=== PATIENT | male | born 1940 | race Caucasian/White ===

== ENCOUNTER 2017-02-17 11:53 | Inpatient (IN) | payer MEDICARE, BC ==
[~2017-02-17] VITALS: Ht 177.8 cm; Wt 92.0 kg
[2017-02-17] VITALS: BP 130/86; PULSE 74; RESP 18; TEMP 97.2; O2SAT 97
[~2017-02-17 11:53] MED LIST: COUM5TAB PO; COUM7.5T PO; FOLI1 PO; GABA300C3 PO; MORP60TA20 PO; MSIR15 PO; POTA-243 PO; TAMS0.4C67 PO; [UNRECOGNIZED DRUG - CODE]
[2017-02-17] MEDS ORDERED: SODIUM CHLORIDE 0.9% FLUSH 10 ML FLUSH IVF PRN (12:15)
[2017-02-17 12:21] VITALS: RESP 20; O2SAT 99
[2017-02-17 12:29] VITALS: BP 113/67; PULSE 80; RESP 20; TEMP 97.7
--- NOTE | 2017-02-17 12:40 | PD ---
HPI Chief Complaint: Respiratory Distress Time Seen by Provider: 12:06 Travel History International Travel<30 days: No Contact w/Intl Traveler<30days: No Traveled to known affect area: No History of Present Illness HPI 76-year-old male with history of adenocarcinoma of the esophagus, hypertension, DVT, presents to the ER today because he started having shortness of breath starting last night. He denies any chest pains, states has been coughing, denies any significant phlegm production, fevers, or any other symptoms. Modifying Factors: None Associated Signs & Symptoms: Worsening shortness of breath Risk Factors: Elderly, multiple medical issues PFSH Past Medical History Arthritis: Yes Asthma: No Autoimmune Disease: No Anxiety: Yes Depression: No Heart Rhythm Problems: No Cancer: Yes (PROSTATE) Cardiovascular Problems: Yes (LEFT LEG DVT) High Cholesterol: Yes Chemotherapy: No Chest Pain: No Congestive Heart Failure: No COPD: No Cerebrovascular Accident: No Diabetes: No Diminished Hearing: No Deep Vein Thrombosis: Yes (LEFT LEG) Endocrine: No Gastrointestinal Disorders: Yes GERD: Yes Genitourinary: Yes (BPH) Headaches: Yes Hepatitis: No Hiatal Hernia: No Hypertension: Yes Immune Disorder: No Kidney Stones: No Musculoskeletal: Yes Neurologic: Yes Psychiatric: Yes Reproductive: No Respiratory: No Integumentary: Yes (BOTH LOWER LEGS EDEMA) Migraines: No Radiation Therapy: No Renal Failure: Yes (END STAGE RENAL DISEASE) Seizures: No Sickle Cell Disease: No Sleep Apnea: No Thyroid Disease: No Ulcer: No Past Surgical History Abdominal Surgery: Yes (double hernia repair) AICD: No Arteriovenous Shunt: No Cardiac Surgery: No Ear Surgery: No Endocrine Surgery: No Eye Surgery: No Genitourinary Surgery: No Gynecologic Surgery: No Insulin Pump: No Joint Replacement: Yes (RT HIP) Neurologic Surgery: No Oral Surgery: No Pacemaker: No Thoracic Surgery: No Other Surgery: Yes Social History Alcohol Use: Yes Tobacco Use: Yes (cigars) Substance Use: No Allergies-Medications (Allergen,Severity, Reaction): Uncoded Allergies: ANTIDEPRESSANTS (Adverse Reaction, Mild, DEPRESSED, 05/28/15) pt states not allergic Reported Meds & Prescriptions Reported Meds & Active Scripts Active Reported Diltiazem (Diltiazem HCl) 90 Mg Tab 90 Mg PO DAILY Folate (Folic Acid) 1 Mg Tab 1 Mg PO DAILY Ferrous Sulfate 325 Mg Tab 325 Mg PO DAILY K-Tab (Potassium Chloride) 10 Meq Tab 10 Meq PO BID Warfarin 2.5 Mg Tab 2.5 Mg PO SUMOWETHSA IN THE AM Warfarin 5 Mg Tab 5 Mg PO TUFR IN THE AM. Lasix (Furosemide) 20 Mg Tab 20 Mg PO DAILY Megared [place]-3 Krill Oil (Krill Oil) 500 Mg Cap 500 Mg PO DAILY Centrum (Multiple Vitamins W/ Minerals) 1 Tab 1 Tab PO DAILY Morphine IR (Morphine Sulfate) 30 Mg Tab 30 Mg PO TID PRN Ms Contin (Morphine Sulfate) 30 Mg Tab 30 Mg PO BID Tamsulosin (Tamsulosin HCl) 0.4 Mg Cap 0.4 Mg PO HS Magnesium Oxide 400 Mg Tab 400 Mg PO DAILY Lyrica (Pregabalin) 150 Mg Cap 150 Mg PO HS Amoxicillin 500 Mg Cap 500 Mg PO Q12HR Review of Systems Except as stated in HPI: all other systems reviewed are Neg Physical Exam Narrative GENERAL: Well-developed elderly white male patient in mild respiratory distress at rest. Awake and oriented 3. SKIN: Focused skin assessment warm/dry. HEAD: Atraumatic. Normocephalic. EYES: Pupils equal and round. No scleral icterus. No injection or drainage. ENT: No nasal bleeding or discharge. Mucous membranes pink and moist. NECK: Trachea midline. Positive JVD. CARDIOVASCULAR: Regular rate and rhythm. No murmur appreciated. RESPIRATORY: Mild accessory muscle use. Breath sounds decreased at bases. Breath sounds equal bilaterally. GASTROINTESTINAL: Abdomen soft, non-tender, nondistended. Hepatic and splenic margins not palpable. MUSCULOSKELETAL: No obvious deformities. No clubbing. No cyanosis. EXTREMITIES: No clubbing, cyanosis. Notable for bilateral pitting edema the legs. No joint tenderness or effusion noted. No calf tenderness. NEUROLOGICAL: Awake and alert. No obvious cranial nerve deficits. Motor grossly within normal limits. Normal speech. PSYCHIATRIC: Appropriate mood and affect; insight and judgment normal. Data Data Last Documented VS Vital Signs Date Time Temp Pulse Resp B/P Pulse Ox O2 Delivery O2 Flow Rate FiO2 02/17/17 15:26 86 16 123/79 97 3 02/17/17 12:37 Nasal Cannula 02/17/17 12:29 97.7 Orders Complete Blood Count With Diff (02/17/17 12:06) Comprehensive Metabolic Panel (02/17/17 12:06) B-Type Natriuretic Peptide (02/17/17 12:06) Act Partial Throm Time (Ptt) (02/17/17 12:06) Prothrombin Time / Inr (Pt) (02/17/17 12:06) Ckmb (Isoenzyme) Profile (02/17/17 12:06) Troponin I (02/17/17 12:06) Iv Access Insert/Monitor (02/17/17 12:06) Electrocardiogram (02/17/17 12:06) Ecg Monitoring (02/17/17 12:06) Oximetry (02/17/17 12:06) Oxygen Administration (02/17/17 12:06) Chest, Single Ap (02/17/17 12:06) Sodium Chloride 0.9% Flush (Ns Flush) (02/17/17 12:15) Ct Pulmonary Angiogram (02/17/17 13:38) Acetamin-Hydrocod 325-5 Mg ([place] 5-325 (02/17/17 14:00) Iohexol 350 Inj (Omnipaque 350 Inj) (02/17/17 15:54) Enoxaparin Inj (Lovenox Inj) (02/17/17 16:30) Labs Laboratory Tests Test 02/17/17 02/17/17 02/17/17 00:00 11:45 12:30 B-Type Natriuretic Peptide 81 PG/ML Prothrombin Time 26.3 SEC Prothromb Time International 2.3 RATIO Ratio Activated Partial 37.9 SEC Thromboplast Time White Blood Count 8.2 TH/MM3 Red Blood Count 3.96 MIL/MM3 Hemoglobin 13.5 GM/DL Hematocrit 39.9 % Mean Corpuscular Volume 100.7 FL Mean Corpuscular Hemoglobin 33.9 PG Mean Corpuscular Hemoglobin 33.7 % Concent Red Cell Distribution Width 16.5 % Platelet Count 160 TH/MM3 Mean Platelet Volume 7.8 FL Neutrophils (%) (Auto) 80.2 % Lymphocytes (%) (Auto) 9.0 % Monocytes (%) (Auto) 9.2 % Eosinophils (%) (Auto) 0.6 % Basophils (%) (Auto) 1.0 % Neutrophils # (Auto) 6.5 TH/MM3 Lymphocytes # (Auto) 0.7 TH/MM3 Monocytes # (Auto) 0.7 TH/MM3 Eosinophils # (Auto) 0.1 TH/MM3 Basophils # (Auto) 0.1 TH/MM3 CBC Comment DIFF FINAL Differential Comment Sodium Level 138 MEQ/L Potassium Level 4.7 MEQ/L Chloride Level 104 MEQ/L Carbon Dioxide Level 26.4 MEQ/L Anion Gap 8 MEQ/L Blood Urea Nitrogen 36 MG/DL Creatinine 1.52 MG/DL Estimat Glomerular Filtration 45 ML/MIN Rate Random Glucose 105 MG/DL Calcium Level 8.7 MG/DL Total Bilirubin 0.8 MG/DL Aspartate Amino Transf 29 U/L (AST/SGOT) Alanine Aminotransferase 19 U/L (ALT/SGPT) Alkaline Phosphatase 106 U/L Total Creatine Kinase 77 U/L Troponin I LESS THAN 0.02 NG/ML Total Protein 6.6 GM/DL Albumin 2.9 GM/DL [facility] Medical Decision Making Medical Screen Exam Complete: Yes Emergency Medical Condition: Yes Medical Record Reviewed: Yes Interpretation(s) Laboratory Tests Test 02/17/17 02/17/17 11:45 12:30 Prothrombin Time 26.3 SEC (9.8-11.6) Activated Partial 37.9 SEC Thromboplast Time (24.3-30.1) Red Blood Count 3.96 MIL/MM3 (4.50-5.90) Mean Corpuscular Volume 100.7 FL (80.0-100.0) Neutrophils (%) (Auto) 80.2 % (16.0-70.0) Monocytes (%) (Auto) 9.2 % (0.0-8.0) Lymphocytes # (Auto) 0.7 TH/MM3 (1.0-4.8) Blood Urea Nitrogen 36 MG/DL (7-18) Creatinine 1.52 MG/DL (0.60-1.30) Estimat Glomerular Filtration 45 ML/MIN (>89) Rate Troponin I LESS THAN 0.02 NG/ML (0.02-0.05) Albumin 2.9 GM/DL (3.4-5.0) Last [address] Angiography 02/17/17 5168 Signed Impressions: Service Date/Time: Friday, February 17, 2017 15:08 - CONCLUSION: 1. Extensive metastatic disease with innumerable mass lesions throughout both lungs. 2. In addition, there are bulky left supraclavicular and left axillary lymph nodes, prevascular and subcarinal lymph nodes. 3. Nearly occlusive filling defect in the central pulmonary artery to the right lower lobe. I'm not sure if this represents external compression from a bulky hilar lymph node with downstream thrombosis versus a true embolic event. This appears to be isolated, however. 4. Lytic lesion in the left scapula involving the acromion and glenoid characteristic of metastatic disease. Myles Beltran MD Chest X-Ray 02/17/17 1206 Signed Impressions: Service Date/Time: Friday, February 17, 2017 12:19 - CONCLUSION: Cardiomegaly with probable bibasilar atelectasis. Christofer Kennedy MD Differential Diagnosis Shortness of breathpneumonia versus CHF versus COPD versus PE Narrative Course Initial chest x-ray did not show any signs of acute processes. Lab work, cardiac enzymes, BNP is essentially unremarkable. CTA was done to evaluate symptoms further and show metastases to multiple areas of both lungs with a questionable compression of one of the main arteries in the right lung versus PE versus thrombosis. At this point, patient was put on Lovenox as well. My plan would be to admit the patient for further evaluation and treatment. Case was discussed with family practice resident service for admission. Diagnosis Primary Impression: Pulmonary embolism Additional Impression: Cancer with pulmonary metastases Admitting Information Admitting Physician Requests: Admit Chang Martin MD February 17, 2017 12:40
--- NOTE | 2017-02-17 12:41 | RADRPT ---
EXAM DATE/TIME: 02/17/2017 12:19 [facility] COMPARISON: CHEST SINGLE AP, April 27, 2014, 19:56. INDICATIONS : Short of breath, swollen legs, lethargic. MEDICAL HISTORY : Chronic obstructive pulmonary disease. SURGICAL HISTORY : None. ENCOUNTER: Initial ACUITY: 1 day PAIN SCORE: 0/10 LOCATION: Bilateral chest FINDINGS: A single view of the chest demonstrates cardiomegaly and bibasilar densities. Right-sided portacathet er with tip in the right atrium. Diminished lung volumes limiting evaluation. Osseous structures are intact. CONCLUSION: Cardiomegaly with probable bibasilar atelectasis. Christofer Kennedy MD on February 17, 2017 at 12:38 Board Certified Radiologist. This report was verified electronically.
[2017-02-17 12:58] LABS: AUTOMATED NEUTROPHIL # 6.5 TH/MM3 (1.8-7.7); BASOPHIL # 0.1 TH/MM3 (0-0.2); EOSINOPHIL # 0.1 TH/MM3 (0-0.4); EOSINOPHIL % 0.6 % (0.0-4.0); HEMATOCRIT 39.9 % (39.0-51.0); HEMO FLAGS DIFF FINAL; LYMPHOCYTE # 0.7 TH/MM3 (1.0-4.8); MEAN CELL VOLUME 100.7 FL (80.0-100.0); MEAN CORPUSCULAR HEMOGLOBIN 33.9 PG (27.0-34.0); MEAN CORPUSCULAR HGB CONC 33.7 % (32.0-36.0); MONO % 9.2 % (0.0-8.0); NEUT % 80.2 % (16.0-70.0); PLATELET COUNT 160 TH/MM3 (150-450); RED BLOOD COUNT 3.96 MIL/MM3 (4.50-5.90); RED CELL DISTRIBUTION WIDTH 16.5 % (11.6-17.2); WHITE BLOOD COUNT 8.2 TH/MM3 (4.0-11.0)
[2017-02-17 13:08] LABS: APTT (PATIENT) 37.9 SEC (24.3-30.1); INTERNATIONAL NORMALIZED RATIO 2.3 RATIO; PROTHROMBIN TIME - PATIENT 26.3 SEC (9.8-11.6)
[2017-02-17 13:23] LABS: ALT (GPT) 19 U/L (12-78); ANION GAP 8 MEQ/L (5-15); AST (GOT) 29 U/L (15-37); BICARBONATE 26.4 MEQ/L (21.0-32.0); BLOOD UREA NITROGEN 36 MG/DL (7-18); CHLORIDE 104 MEQ/L (98-107); GLOMERULAR FILTRATION RATE 45 ML/MIN (>89); POTASSIUM 4.7 MEQ/L (3.5-5.1); SODIUM (NA) 138 MEQ/L (136-145)
[2017-02-17 13:27] LABS: ALKALINE PHOSPHATASE 106 U/L (45-117); TOTAL BILIRUBIN ADULT 0.8 MG/DL (0.2-1.0)
[2017-02-17 13:31] LABS: CREATINE KINASE 77 U/L (39-308)
[2017-02-17] MEDS ORDERED: MS C30TA PO (13:49)
[2017-02-17] MEDS ORDERED: LYRI150C PO (13:49)
[2017-02-17] MEDS ORDERED: AMOX500C PO (13:49)
[2017-02-17] MEDS ORDERED: MAGN400T2 PO (13:49)
[2017-02-17] MEDS ORDERED: TAMS0.4C4 PO (13:49)
[2017-02-17] MEDS ORDERED: MULT-6 PO (13:53)
[2017-02-17] MEDS ORDERED: FURO1TAB62 PO (13:53)
[2017-02-17] MEDS ORDERED: KRIL1CAP9 PO (13:53)
[2017-02-17] MEDS ORDERED: MSIR30 PO (13:53)
[2017-02-17] MEDS ORDERED: WARF-23 PO (13:55)
[2017-02-17] MEDS ORDERED: WARF-18 PO (13:55)
[2017-02-17] MEDS ORDERED: FOLI1TAB4 PO (13:57)
[2017-02-17] MEDS ORDERED: K-TA10TA PO (13:57)
[2017-02-17] MEDS ORDERED: DILT90TA PO (13:57)
[2017-02-17] MEDS ORDERED: FERR325T PO (13:57)
[2017-02-17] MEDS ORDERED: ACETAMINOPHEN/HYDROcodone 325 MG/5 MG TAB PO ONE (14:00)
[2017-02-17 15:26] VITALS: BP 123/79; PULSE 86; RESP 16; O2SAT 97
[2017-02-17] MEDS ORDERED: IOHEXOL 350 MG/ML 10 ML VIAL (for RAD DIAG) IV ONE (15:54)
--- NOTE | 2017-02-17 15:55 | RADRPT ---
EXAM DATE/TIME: 02/17/2017 15:08 [facility] COMPARISON: CHEST SINGLE AP, February 17, 2017, 12:19. INDICATIONS : Short of breath for one day IV CONTRAST: 70 cc Omnipaque 350 (iohexol) IV RADIATION DOSE: 23.33 CTDIvol (mGy) MEDICAL HISTORY : Cardiovascular disease. Congestive heart failure. Deep venous thrombosis.Hypertension. Atrial fibrill ation. Prostate cancer. Renal failure. SURGICAL HISTORY : None. ENCOUNTER: Initial ACUITY: 1 day PAIN SCALE: 2/10 LOCATION: Bilateral chest TECHNIQUE: Volumetric scanning of the chest was performed using a pulmonary embolism protocol MIP images were re constructed. Using automated exposure control and adjustment of the mA and/or kV according to patien t size, radiation dose was kept as low as reasonably achievable to obtain optimal diagnostic quality images. FINDINGS: PULMONARY ARTERIES: Nearly occlusive filling defect in the major pulmonary artery to the right lower lobe. I'm not sure i f this represents external compression from a prominent hilar lymph node with downstream thrombosis o r a true embolic event. Either way, there is marked flow restriction to this arterial distribution. P ulmonary arteries are otherwise patent. LUNGS: Innumerable mass lesions throughout both lungs characteristic of metastatic disease. PLEURAE: There is no pleural thickening or pleural effusion. MEDIASTINUM: Extensive adenopathy in the left supraclavicular region, prevascular space and subcarinal distributio n as well as the left axillary lymph nodes. MUSCULOSKELETAL: Lytic lesion in the left scapula involving the acromion and glenoid. MISCELLANEOUS: Nonspecific hypodensity in the right hepatic lobe near the dome of the gallbladder. 1.9 cm nodule in the right adrenal gland. CONCLUSION: 1. Extensive metastatic disease with innumerable mass lesions throughout both lungs. 2. In addition, there are bulky left supraclavicular and left axillary lymph nodes, prevascular and s ubcarinal lymph nodes. 3. Nearly occlusive filling defect in the central pulmonary artery to the right lower lobe. I'm not s ure if this represents external compression from a bulky hilar lymph node with downstream thrombosis versus a true embolic event. This appears to be isolated, however. 4. Lytic lesion in the left scapula involving the acromion and glenoid characteristic of metastatic d isease. Myles Beltran MD on February 17, 2017 at 15:37 Board Certified Radiologist. This report was verified electronically.
[2017-02-17] MEDS ORDERED: ENOXAPARIN SODIUM 100 MG/ML SYRINGE SQ ONE (16:30)
--- NOTE | 2017-02-17 16:33 | HHI.HP ---
[facility] Service Family Medicine Primary Care Physician Unknown Admission Diagnosis Diagnoses: International Travel<30 Days: No Contact w/Intl Traveler<30days: No Known Affected Area: No History of Present Illness 76-year-old male with history of esophageal adenocarcinoma. According to EMR records, from his oncologist Dr. Bartlett, he underwent upper and lower endoscopy March 2015 and was found to have poorly differentiated adenocarcinoma involving the GE junction. He was not a candidate for surgery. He was treated with radiation therapy and had complete response with upper endoscopies within normal limits. He had an upper endoscopy in May [address] Deleon and showed no evidence of cancer. 04/20/2016 PET scan showed no cancer. Patient is in the room with his friend/significant other. Patient states that 2 days ago he was laying in bed reading and became short of breath all of a sudden. He could not catch his breath at that time. Normally he is able to walk half a block, but over the last 2 days he has had trouble getting around his house. He also fell last night while getting out of bed. He thinks he laid on the ground for approximately 30 minutes and called his significant other who, with the help of a neighbor, picked the patient up and into bed. This morning and all day, the patient has not had anything to eat. He has been taking water. His primary care physician did start him on amoxicillin on Wednesday because of concern for infection in his legs. He does have chronic left shoulder pain, but his pain in his left shoulder is now worse than normal. He cannot move it very well. It is very tender to touch. 9 out of 10 pain which is worse with moving and touching it. Review of Systems Constitutional: COMPLAINS OF: Fever (felt hot), Chills, DENIES: Night Sweats Eyes: DENIES: Blurred vision, Diplopia Respiratory: COMPLAINS OF: Shortness of breath, DENIES: Cough, Sputum production Cardiovascular: COMPLAINS OF: Chest pain Gastrointestinal: COMPLAINS OF: Difficulty Swallowing, DENIES: Abdominal pain , Constipation, Diarrhea, Nausea, Vomiting Musculoskeletal: COMPLAINS OF: Joint pain, Muscle aches, Stiffness, Joint Swelling, Back pain, Neck pain Integumentary: COMPLAINS OF: Abnormal pigmentation, Rash Hematologic/lymphatic: COMPLAINS OF: Bruising Neurologic: COMPLAINS OF: Abnormal gait, DENIES: Headache Psychiatric: DENIES: Anxiety, Confusion Past Family Social History Past Medical History Gout Anxiety and depression Arthritis Chronic back pain requiring narcotics DVT 2 Esophageal cancer (follows with Dr. Bartlett), poorly differentiated adenocarcinoma Hypertension Mild dysphagia Osteoporosis Peripheral vascular disease Prostate cancer Past Surgical History Biopsy, multiple prostate biopsies show small focus of prostate cancer May 01, 2016 Carpal tunnel right hand Hernia repair, bilateral Hip surgery, left Right knee surgery Right inguinal hernia repair Colonoscopy in 2015 Reported Medications Reported Meds & Active Scripts Active Reported Diltiazem (Diltiazem HCl) 90 Mg Tab 90 Mg PO DAILY Folate (Folic Acid) 1 Mg Tab 1 Mg PO DAILY Ferrous Sulfate 325 Mg Tab 325 Mg PO DAILY K-Tab (Potassium Chloride) 10 Meq Tab 10 Meq PO BID Warfarin 2.5 Mg Tab 2.5 Mg PO SUMOWETHSA IN THE AM Warfarin 5 Mg Tab 5 Mg PO TUFR IN THE AM. Lasix (Furosemide) 20 Mg Tab 20 Mg PO DAILY Megared [place]-3 Krill Oil (Krill Oil) 500 Mg Cap 500 Mg PO DAILY Centrum (Multiple Vitamins W/ Minerals) 1 Tab 1 Tab PO DAILY Morphine IR (Morphine Sulfate) 30 Mg Tab 30 Mg PO TID PRN Ms Contin (Morphine Sulfate) 30 Mg Tab 30 Mg PO BID Tamsulosin (Tamsulosin HCl) 0.4 Mg Cap 0.4 Mg PO HS Magnesium Oxide 400 Mg Tab 400 Mg PO DAILY Lyrica (Pregabalin) 150 Mg Cap 150 Mg PO HS Amoxicillin 500 Mg Cap 500 Mg PO Q12HR Allergies: Uncoded Allergies: ANTIDEPRESSANTS (Adverse Reaction, Mild, DEPRESSED, 05/28/15) pt states not allergic Active Ordered Medications Active Medications Acetaminophen/ Hydrocodone Bitart ([place] 5-325 Mg) 1 tab ONCE ONCE PO Last administered on 02/17/17 14:00; Admin Dose 1 TAB; Start 02/17/17 at 14:00; Stop 02/17/17 at 14:01; Status DC Enoxaparin Sodium (Lovenox Inj) 100 mg ONCE ONCE SQ; Start 02/17/17 at 16:30; Stop 02/17/17 at 16:31; Status DC Iohexol (Omnipaque 350 Inj) 70 ml STK-MED ONCE IV Last administered on 15:54; Admin Dose 70 ML; Start 02/17/17 at 15:54; Stop 02/17/17 at 15:55; Status DC Sodium Chloride (NS Flush) 2 ml UNSCH PRN IVF; Start 02/17/17 at 12:15 Family History Mother: no hx of cancer Father: non contributory Social History ADL: cooks, cleans, bathes self. Pays bills Lives with: his "friend" who helps him at home. Tobacco: currently puffs on cigars. hx of tobacco use 50 years ago socially. Alcohol: drinks a quart of whiskey every 2 days. never been through withdrawal. Physical Exam Vital Signs Vital Signs Date Time Temp Pulse Resp B/P Pulse Ox O2 Delivery O2 Flow Rate FiO2 02/17/17 15:26 86 16 123/79 97 3 02/17/17 12:37 99 Nasal Cannula 3.5 02/17/17 12:29 97.7 80 20 113/67 02/17/17 12:21 99 Nasal Cannula 3.5 02/17/17 12:21 20 99 3.5 Physical Exam GENERAL: This is a elderly, tired appearing male, who appears uncomfortable lying in bed. NAD SKIN: bilateral lower legs with hemosiderin changes. HEAD: Atraumatic. Normocephalic. No temporal or scalp tenderness. EYES: Pupils equal round and reactive. Extraocular motions intact. No scleral icterus. No injection or drainage. ENT: Nose without bleeding, purulent drainage or septal hematoma. Throat without erythema, tonsillar hypertrophy or exudate. Uvula midline. Airway patent. NECK: Trachea midline. Supple, nontender, no meningeal signs. CARDIOVASCULAR: Regular rate and rhythm without murmurs, gallops, or rubs. RESPIRATORY: Clear to auscultation. Normal respiratory effort GASTROINTESTINAL: Abdomen soft, non-tender, nondistended. No hepato-splenomegaly , or palpable masses. No guarding. MUSCULOSKELETAL: 2+ edema to mid phillip. 2+ edema on left hand to wrist. Left shoulder: exquisitely tender to palpation. no active ROM. passive ROM deferred. NEUROLOGICAL: Awake and alert. Cranial nerves II through XII intact. Motor and sensory grossly within normal limits. Normal speech. Laboratory Laboratory Tests Test 02/17/17 02/17/17 02/17/17 00:00 11:45 12:30 B-Type Natriuretic Peptide 81 Prothrombin Time 26.3 Prothromb Time International 2.3 Ratio Activated Partial 37.9 Thromboplast Time White Blood Count 8.2 Red Blood Count 3.96 Hemoglobin 13.5 Hematocrit 39.9 Mean Corpuscular Volume 100.7 Mean Corpuscular Hemoglobin 33.9 Mean Corpuscular Hemoglobin 33.7 Concent Red Cell Distribution Width 16.5 Platelet Count 160 Mean Platelet Volume 7.8 Neutrophils (%) (Auto) 80.2 Lymphocytes (%) (Auto) 9.0 Monocytes (%) (Auto) 9.2 Eosinophils (%) (Auto) 0.6 Basophils (%) (Auto) 1.0 Neutrophils # (Auto) 6.5 Lymphocytes # (Auto) 0.7 Monocytes # (Auto) 0.7 Eosinophils # (Auto) 0.1 Basophils # (Auto) 0.1 CBC Comment DIFF FINAL Differential Comment Sodium Level 138 Potassium Level 4.7 Chloride Level 104 Carbon Dioxide Level 26.4 Anion Gap 8 Blood Urea Nitrogen 36 Creatinine 1.52 Estimat Glomerular Filtration 45 Rate Random Glucose 105 Calcium Level 8.7 Total Bilirubin 0.8 Aspartate Amino Transf 29 (AST/SGOT) Alanine Aminotransferase 19 (ALT/SGPT) Alkaline Phosphatase 106 Total Creatine Kinase 77 Troponin I LESS THAN 0.02 Total Protein 6.6 Albumin 2.9 Result Diagram: 02/17/17 1230 02/17/[address] Angiography 02/17/17 1338 Signed Impressions: Service Date/Time: Friday, February 17, 2017 15:08 - CONCLUSION: 1. Extensive metastatic disease with innumerable mass lesions throughout both lungs. 2. In addition, there are bulky left supraclavicular and left axillary lymph nodes, prevascular and subcarinal lymph nodes. 3. Nearly occlusive filling defect in the central pulmonary artery to the right lower lobe. I'm not sure if this represents external compression from a bulky hilar lymph node with downstream thrombosis versus a true embolic event. This appears to be isolated, however. 4. Lytic lesion in the left scapula involving the acromion and glenoid characteristic of metastatic disease. Myles Beltran MD Chest X-Ray 02/17/17 1206 Signed Impressions: Service Date/Time: Friday, February 17, 2017 12:19 - CONCLUSION: Cardiomegaly with probable bibasilar atelectasis. Christofer Kennedy MD Assessment and Plan Assessment and Plan 76-year-old male with history of esophageal carcinoma presents with CT findings concerning for metastatic cancer to lung and left shoulder. Also concerning for pulmonary embolism. Treatment as below Code Status Full, discussed with patient the likely futility in chest compressions being successful for a good outcome. Discussed Condition With Dr. Prieto On-call oncologist, Dr. Das Problem List: (1) Cancer with pulmonary metastases Status: Acute Plan: CT findings show metastatic carcinoma to liver and left scapula/shoulder Oncology consult, Dr. Bartlett Palliative consult Pain control: Continue home regimen, Oramorph 30 mg by mouth twice a day, morphine IR 30 mg by mouth 3 times a day when necessary Obtain CT abdomen/pelvis now (2) Pulmonary embolism Status: Acute Plan: Currently adequately anticoagulated on warfarin Continue warfarin INR 2.3 (3) Alcohol abuse Status: Acute Plan: Folic acid, multivitamin, thiamine CIWA (4) Acute renal failure Status: Acute Plan: Likely from decreased by mouth intake in the last 1-2 days Start normal saline 140 mL per hour (5) Physical deconditioning Status: Acute Plan: PT consult (6) FEN/PPX Status: Acute Plan: Fluids: Normal saline at 140 miles per hour Electrolytes: Monitor and replace when necessary Nutrition: Clear liquid diet now, speech therapy to evaluate Prophylaxis: Continue warfarin, INR 2.3, bilateral SCDs. Chronic medical conditions: Lower extremity edema: Continue Lasix 20 mg daily Iron deficiency anemia: Continue home iron CAD: Continue diltiazem 90 mg by mouth daily BPH: Continue Flomax Physician Certification 2 Midnight Certification Type: Admission for Inpatient Services Order for Inpatient Services The services are ordered in accordance with Medicare regulations or non- Medicare payer requirements, as applicable. In the case of services not specified as inpatient-only, they are appropriately provided as inpatient services in accordance with the 2-midnight benchmark. Estimated LOS (days): 3 days is the estimated time the patient will need to remain in the hospital, assuming treatment plan goals are met and no additional complications. Post-Hospital Plan: Not yet determined Raghu Funez MD R2 February 17, 2017 16:33
[2017-02-17] MEDS: SODIUM CHLOR 0.9% 1000 ML INJ 1,000 ML IV SCH (17:33)
[2017-02-17] MEDS ORDERED: MAGNESIUM HYDROXIDE SUSP 30 ML CUP PO PRN (17:45)
[2017-02-17] MEDS ORDERED: LORazepam 1 MG TAB PO PRN (17:45)
[2017-02-17] MEDS ORDERED: LORazepam 2 MG/ML VIAL IV PUSH PRN ×4 (17:45)
[2017-02-17] MEDS ORDERED: ONDANSETRON HCL 4 MG/2 ML VIAL IVP PRN (17:45)
[2017-02-17] MEDS ORDERED: SODIUM CHLORIDE 0.9% FLUSH 10 ML FLUSH IV FLUSH PRN (17:45)
[2017-02-17] MEDS ORDERED: NALOXONE HCL 0.4 MG/ML AMP IV PRN (17:45)
[2017-02-17] MEDS ORDERED: LORazepam 2 MG TAB PO PRN (17:45)
[2017-02-17] MEDS ORDERED: FLUMAZENIL 0.5 MG/5 ML VIAL IV PUSH PRN (17:45)
[2017-02-17] MEDS: WARFARIN SOD 2.5 MG TAB PO SCH (18:00)
[2017-02-17 18:13] VITALS: BP 139/100; PULSE 83; RESP 18; TEMP 98.2; O2SAT 97
[2017-02-17] MEDS ORDERED: DO NOT ADM ANY ANTICOAGULANT DRUGS OTHER PRN (18:30)
[2017-02-17 20:00] VITALS: BP 125/71; PULSE 83; RESP 18; TEMP 97.4; O2SAT 97
[2017-02-17] MEDS: POTASSIUM CHLORIDE 10 MEQ CONTROLLED RELEASE TAB PO SCH (21:20)
[2017-02-17] MEDS: PREGABALIN 75 MG CAP PO SCH (21:20)
[2017-02-17] MEDS: TAMSULOSIN HCL 0.4 MG CAP PO SCH (21:22)
[2017-02-17] MEDS: MORPHINE SULFATE 30 MG CONTROLLED RELEASE TAB PO SCH (21:22)
[2017-02-17] MEDS: SODIUM CHLORIDE 0.9% FLUSH 10 ML FLUSH IV FLUSH SCH (21:22)
[2017-02-18] VITALS (10 sets, daily range): BP systolic 131–138; BP diastolic 61–87; PULSE 76–93; RESP 18–20; TEMP 97.3–98.1; O2SAT 94–99
[2017-02-18] MEDS: SODIUM CHLOR 0.9% 1000 ML INJ 1,000 ML IV SCH ×2 (00:42→22:09)
[2017-02-18 05:42] LABS: AUTOMATED NEUTROPHIL # 5.1 TH/MM3 (1.8-7.7); BASOPHIL # 0.1 TH/MM3 (0-0.2); BASOPHIL % 0.8 % (0.0-2.0); EOSINOPHIL # 0.1 TH/MM3 (0-0.4); HEMATOCRIT 39.2 % (39.0-51.0); HEMO FLAGS DIFF FINAL; LYMPH % 10.6 % (9.0-44.0); LYMPHOCYTE # 0.7 TH/MM3 (1.0-4.8); MEAN CELL VOLUME 101.9 FL (80.0-100.0); MEAN CORPUSCULAR HEMOGLOBIN 34.6 PG (27.0-34.0); MEAN CORPUSCULAR HGB CONC 33.9 % (32.0-36.0); NEUT % 78.6 % (16.0-70.0); PLATELET COUNT 158 TH/MM3 (150-450); RED BLOOD COUNT 3.85 MIL/MM3 (4.50-5.90); RED CELL DISTRIBUTION WIDTH 16.6 % (11.6-17.2); WHITE BLOOD COUNT 6.5 TH/MM3 (4.0-11.0)
[2017-02-18 05:54] LABS: INTERNATIONAL NORMALIZED RATIO 2.3 RATIO; PROTHROMBIN TIME - PATIENT 26.9 SEC (9.8-11.6)
[2017-02-18 06:14] LABS: ALKALINE PHOSPHATASE 106 U/L (45-117); ALT (GPT) 15 U/L (12-78); ANION GAP 7 MEQ/L (5-15); AST (GOT) 22 U/L (15-37); BICARBONATE 28.1 MEQ/L (21.0-32.0); BLOOD UREA NITROGEN 34 MG/DL (7-18); CHLORIDE 104 MEQ/L (98-107); GLOMERULAR FILTRATION RATE 53 ML/MIN (>89); POTASSIUM 4.7 MEQ/L (3.5-5.1); SODIUM (NA) 139 MEQ/L (136-145); TOTAL BILIRUBIN ADULT 0.7 MG/DL (0.2-1.0)
--- NOTE | 2017-02-18 08:15 | HHI.FPPN ---
Subjective Remarks Pt seen and examined this AM. Did well overnight. No new complaints. Denies CP, SOB, abdominal pain, headache, edema, rash, cough, hemoptysis. Feels like he can 't get his throat cleared. Hasn't tried eating yet. Doesn't want to stay in the hospital and wants to go home as soon as possible. (Jen Torres MD) Objective Vitals Vital Signs Date Time Temp Pulse Resp B/P Pulse Ox O2 Delivery O2 Flow Rate FiO2 02/18/17 04:36 98 Nasal Cannula 2.00 02/18/17 04:00 97.5 83 18 131/81 99 02/18/17 03:34 77 02/17/17 22:37 20 02/17/17 22:37 20 02/17/17 20:00 97.4 83 18 125/71 97 02/17/17 18:13 98.2 83 18 139/100 97 Nasal Cannula 2.5 02/17/17 15:26 86 16 123/79 97 3 02/17/17 12:37 99 Nasal Cannula 3.5 02/17/17 12:29 97.7 80 20 113/67 02/17/17 12:21 99 Nasal Cannula 3.5 02/17/17 12:21 20 99 3.5 I/O 02/17/17 02/17/17 02/17/17 02/18/17 02/18/17 02/18/17 07:00 15:00 23:00 07:00 15:00 23:00 Intake Total 480 ml 100 ml Output Total 225 ml Balance 255 ml 100 ml Intake Oral 480 ml 100 ml Output Urine Total 225 ml # Voids 0 # Bowel Movements 0 0 (Jen Torres MD) Result Diagram: 02/18/17 0511 02/18/[address] Angiography 02/17/17 1338 Signed Impressions: Service Date/Time: Friday, February 17, 2017 15:08 - CONCLUSION: 1. Extensive metastatic disease with innumerable mass lesions throughout both lungs. 2. In addition, there are bulky left supraclavicular and left axillary lymph nodes, prevascular and subcarinal lymph nodes. 3. Nearly occlusive filling defect in the central pulmonary artery to the right lower lobe. I'm not sure if this represents external compression from a bulky hilar lymph node with downstream thrombosis versus a true embolic event. This appears to be isolated, however. 4. Lytic lesion in the left scapula involving the acromion and glenoid characteristic of metastatic disease. Myles Beltran MD Chest X-Ray 02/17/17 1206 Signed Impressions: Service Date/Time: Friday, February 17, 2017 12:19 - CONCLUSION: Cardiomegaly with probable bibasilar atelectasis. Christofer Kennedy MD Objective Remarks GENERAL: Elderly male sitting up in bed in NAD. SKIN: Warm and dry. Superficial abrasion left forehead. Pearly, domelike papule with central umbilication tip of nose. HEENT: Pupils equal and round. No nasal drainage. MMM. Hoarse voice. NECK: Supple, fullness of left supraclavicular region. CHEST: Port in place right chest. HEART: RRR no m/r/g/ LUNGS: CTAB w/o wheezes or crackles. ABDOMEN: Soft, NT, ND. EXTREMITIES: No LE edema. Brawny discoloration of LE. NEURO: Awake and alert. (Jen Torres MD) A/P Assessment and Plan 76-year-old male with history of esophageal carcinoma and prostate cancer presenting with shortness of breath and right shoulder pain. CTA with questionable PE but also notable for extensive innumerable metastatic lesions and bulky lymphadenopathy. INR already therapeutic since patient anticoagulated on Coumadin for DVT x 2. Oncology and palliative care consulted for further evaluation and management. Discharge Planning Palliative care and oncology consulted; will await their evaluation and assessment. Patient with new-onset widespread metastatic disease in his lungs and will see if further diagnostic studies will be done while inpatient. (Jen Torres MD) Attending Attestation THIS CASE WAS DISCUSSED WITH THE RESIDENT PHYSICIANS. I HAVE REVIEWED THE RECORD AND AGREE WITH THE ABOVE NOTE AND PLAN OF CARE WAS DISCUSSED. PATIENT WAS SEEN AND EXAMINED WITH THE MEDICAL TEAM. SEE ORDERS. (Benedicto Prieto MD) Problem List: (1) Cancer with pulmonary metastases Status: Acute Plan: Patient presenting with shortness of breath and right shoulder pain and found to have innumerable metastatic lesions in his lungs along with bulky left supraclavicular and left axillary lymph nodes, prevascular and subcarinal lymph nodes, as well as a lytic lesion in the left scapula. He has known esophageal and prostate cancer. Patient known to Dr. Bartlett who is consulted. - CEA significantly elevated (? possibly new primary colorectal cancer vs. prostate or other) - PSA pending - Check CT abdomen/pelvis for further lesions or evidence of new primary - Palliative care consulted to evaluate goals; patient wants to be FULL code - Continue home Oramorph 30 mg PO BID, morphine IR 30 mg PO TID PRN for breath through (2) Pulmonary embolism Status: Acute Plan: Unclear if patient had true embolic event as CTA shows a filling defect in the central pulmonary artery to the right lower lobe which may be from external compression from a bulky hilar node. Regardless, he is already anticoagulated on Coumadin with a therapeutic INR (has history of prior DVT x 2) . (3) Acute renal failure Status: Acute Plan: Creatinine elevated to 1.52 on admission. Improving with hydration. - Monitor and avoid nephrotoxic agents (4) Alcohol abuse Status: Acute Plan: Patient drinks whiskey daily (a quart lasts ~2 days), and elevated MCV suggests significant alcohol consumption. CIWA protocol and rally pack. No signs of acute withdrawal at this time. (5) Physical deconditioning Status: Acute Plan: PT consulted. (6) FEN/PPX Status: Acute Plan: - Fluids: NS at 140 ml/hr - Electrolytes: WNL. Monitor and replete as needed - Nutrition: Clear liquids; ST to evaluate - DVT prophylaxis: Continue home Coumadin Chronic medical conditions: - Venous stasis disease: continue home Lasix - Iron deficiency anemia: continue home iron - CAD: continue diltiazem 90 mg PO daily - BPH: Continue Flomax sdw Dr. Prieto, Dr. Funez, and Dr. Song (Jen Torres MD) Jen Torres MD February 18, 2017 08:15 Benedicto Prieto MD February 19, 2017 08:22
[2017-02-18] MEDS ORDERED: DILTIAZEM 90 MG PO SCH (09:00)
[2017-02-18] MEDS: MULTIVITAMINS/MINERALS THERAPEUTIC TAB PO SCH (09:45)
[2017-02-18] MEDS: FOLIC ACID 1 MG TAB PO SCH (09:45)
[2017-02-18] MEDS: FUROSEMIDE 20 MG TAB PO SCH (09:46)
[2017-02-18] MEDS: FERROUS SULFATE 325 MG (65 MG ELEMENTAL IRON) TAB PO SCH (09:46)
[2017-02-18] MEDS: MAGNESIUM OXIDE 400 MG TAB PO SCH (09:46)
[2017-02-18] MEDS: POTASSIUM CHLORIDE 10 MEQ CONTROLLED RELEASE TAB PO SCH ×2 (09:46→22:09)
[2017-02-18] MEDS: MORPHINE SULFATE 30 MG CONTROLLED RELEASE TAB PO SCH ×2 (09:46→22:10)
[2017-02-18] MEDS: THIAMINE HCL 100 MG TAB PO SCH (09:46)
[2017-02-18] MEDS: SODIUM CHLORIDE 0.9% FLUSH 10 ML FLUSH IV FLUSH SCH ×2 (09:47→22:10)
[2017-02-18] MEDS ORDERED: DILTIAZEM HCL 90 MG TAB PO SCH (10:36)
--- NOTE | 2017-02-18 10:55 | PD.CONS ---
Consult Service Palliative Care . Consult Requested By Dr. Funez . Primary Care Physician Unknown . Reason for Consultation a. To assist with evaluation and management of symptoms including: dyspnea, pain, weakness, constipation b. To assist medical decision maker(s) with: better understanding of current medical conditions; weighing benefits/burdens of medical treatment options; making medical treatment decisions. . HPI History of Present Illness Mr. Zhou is a 76-year-old male who presented to [facility] ED on 2016 for evaluation of shortness of breath and shoulder pain. 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 Dr. Bartlett is his oncologist. He was not a candidate for surgery secondary to his debilitation. He was treated with radiation therapy and comitant Carboplatin and Taxol. A PET scan in 04/2016 showed no evidence of disease; endoscopy in 05/2016 was also negative.. The patient was not a candidate for surgery, but he was treated with radiation therapy with positive effect. Follow-up imaging in April and May 2016 showed no evidence of cancer. Additional past medical history is significant for hypertension, DVT, chronic back pain who process, and mild dysphasia, peripheral vascular disease, prostate cancer, h/o C. difficile, gout, anxiety/depression, arthritis, hypercholesterolemia and ESRD. Patient denied chest pain, reported a non- productive cough. Patient's PCP started the patient on amoxicillin last Wednesday ( 02/14/2017) for active cellulitis. The patient has a history of chronic left shoulder pain, but he reported it was worse than usual with decreased mobility. Patient rated pain a 9 out of 10; pain aches exacerbated by touch or movement. Diagnostic findings all in the ED: * Vital signs: Pulse 74, respirations 18, BP 130/86, oxygen saturation 97% on room air, axillary temperature 97.2 * WBC: 8.2, hemoglobin 13.5, hematocrit 39.9, platelets 160, neutrophils 80.2% * Sodium: 138, potassium 4.7, chloride 104, carbon dioxide 26.4, glucose 105, calcium 8.7 * BUN: 36, creatinine 1.52, GFR 45 total bilirubin: 0.8, AST 29, ALT 19, alkaline phosphatase 106 * Total creatine kinase 77 * BNP: 81 * Total protein: 6.6, albumin 2.9 * PT: 26.3, INR 2.3, APTT 37.9 * EKG: Atrial fibrillation; right bundle branch block * Chest x-ray showed cardiomegaly with probable bibasilar atelectasis. * CTA revealed extensive metastatic disease with innumerable mass lesions throughout both lungs; bulky left supra clavicular and left axillary lymph nodes , prevascular and subcarinal nodes; nearly occlusive filling defect in the central pulmonary artery to the right lower lobe (it is unclear if this represents external compression from a bulky hilar lymph node with downstream thrombosis versus a true embolic event, however appears to be isolated); Lytic lesion in the left scapula involving the acromion and glenoid characteristic of metastatic disease. CTA revealed metastasis to multiple areas in the lungs bilaterally with questionable compression of one of the main arteries in the right lung versus PE versus thrombosis. Patient was started on Lovenox. He was subsequently admitted for further evaluation and medical management. Oncology consult pending. Palliative Care was consulted to assist with symptom management and to discuss with the patient/family the benefits and burdens of his current illnesses and the options regarding future care. . Function/Cognitive Trajectory . Mr. Zhou is a 76-year-old man status post treatment (radiation therapy with comitant Carboplatin and Taxol) for esophageal carcinoma diagnosed in 2014. In August,, the patient was gaining weight. He was having difficulty chewing secondary to fractures and breakage of multiple teeth. Patient reports he was able able to walk half a block without difficulty until recently, but he now has difficulty getting around the house secondary to his dyspnea.the night before the patient presented to [place] ED, he fell while trying to get out of bed and was unable to get up without assist from his significant other and neighbor. He stated in the ED that his appetite had been poor 2 days but now states it is improving. He has a weak cough and feels that he cannot clear his throat. The patient has stated he does not want to stay in the hospital and he wants to go home as soon as possible. . Review of Systems ROS Limitations: Speech Impaired, Poor Historian Constitutional: COMPLAINS OF: Fatigue (increased fatigue), Change in appetite ( recent decline in appetite), Pain (History of chronic left shoulder pain, now increased from baseline. Pain is exacerbated with movement and light palpation. Patient also complains of soreness in bilateral lower extremities.), Generalized weakness Eyes: DENIES: Blurred vision, Diplopia Ears, nose, mouth, throat: DENIES: Hearing loss, Epistaxis Respiratory: COMPLAINS OF: Cough, Shortness of breath Cardiovascular: COMPLAINS OF: Dyspnea on Exertion, Lower Extremity Edema (trace ) Gastrointestinal: COMPLAINS OF: Difficulty Swallowing, DENIES: Constipation, Diarrhea, Nausea, Vomiting Musculoskeletal: COMPLAINS OF: Joint pain (Chronic left shoulder pain), Muscle aches, Stiffness, Joint Swelling, Back pain, Neck pain Integumentary: COMPLAINS OF: Abnormal pigmentation Hematologic/Lymphatics: COMPLAINS OF: Bruising Neurologic: COMPLAINS OF: Abnormal gait, Speech Problems Psychiatric: COMPLAINS OF: Anxiety, Confusion Past Family Social History Uncoded Allergies: ANTIDEPRESSANTS (Adverse Reaction, Mild, DEPRESSED, 05/28/15) pt states not allergic Past Medical History Gout Anxiety/depression Arthritis History of C. difficile DVT x 2 Hypercholesterolemia Hypertension ESRD Chronic back pain requiring narcotics Esophageal cancer (follows with Dr. Bartlett), poorly differentiated adenocarcinoma Mild dysphagia Osteoporosis Peripheral vascular disease Prostate cancer . Past Surgical History Biopsy, multiple prostate biopsies show small focus of prostate cancer May 01, 2016 Carpal tunnel right hand Hernia repair, bilateral Hip surgery, left Right knee surgery Right inguinal hernia repair Colonoscopy in 2014 . Reported Medications Diltiazem (Diltiazem HCl) 90 Mg Tab 90 Mg PO DAILY Folate (Folic Acid) 1 Mg Tab 1 Mg PO DAILY Ferrous Sulfate 325 Mg Tab 325 Mg PO DAILY K-Tab (Potassium Chloride) 10 Meq Tab 10 Meq PO BID Warfarin 2.5 Mg Tab 2.5 Mg PO SUMOWETHSA IN THE AM Warfarin 5 Mg Tab 5 Mg PO TUFR IN THE AM. Lasix (Furosemide) 20 Mg Tab 20 Mg PO DAILY [facility] [place]-3 Krill Oil (Krill Oil) 500 Mg Cap 500 Mg PO DAILY Centrum (Multiple Vitamins W/ Minerals) 1 Tab 1 Tab PO DAILY Morphine IR (Morphine Sulfate) 30 Mg Tab 30 Mg PO TID PRN Ms Contin (Morphine Sulfate) 30 Mg Tab 30 Mg PO BID Tamsulosin (Tamsulosin HCl) 0.4 Mg Cap 0.4 Mg PO HS Magnesium Oxide 400 Mg Tab 400 Mg PO DAILY Lyrica (Pregabalin) 150 Mg Cap 150 Mg PO HS Amoxicillin 500 Mg Cap 500 Mg PO Q12HR . Current Medications Medications (Trade) Dose Ordered Sig/Amador Route Start Time Stop Time Status Last Admin (NS 1000 ml Inj) 1,000 ml @ 140 mls/hr Q7H9M IV 02/17/17 17:33 02/18/17 00:42 (NS Flush) 2 ml UNSCH PRN IV FLUSH 02/17/17 17:45 (NS Flush) 2 ml BID IV FLUSH 02/17/17 21:00 02/18/17 09:47 (Zofran Inj) 4 mg Q6H PRN IVP 02/17/17 17:45 (Milk Of Magnesia Liq) 30 ml Q12H PRN PO 02/17/17 17:45 (Narcan Inj) 0.4 mg UNSCH PRN IV 02/17/17 17:45 (Romazicon Inj) 0.2 mg Q1M PRN IV PUSH 02/17/17 17:45 (Ativan) 1 mg Q4H PRN PO 02/17/17 17:45 (Ativan Inj) 1 mg Q4H PRN IV PUSH 02/17/17 17:45 (Ativan) 2 mg Q2H PRN PO 02/17/17 17:45 (Ativan Inj) 2 mg Q2H PRN IV PUSH 02/17/17 17:45 (Ativan Inj) 2 mg Q1H PRN IV PUSH 02/17/17 17:45 (Ativan Inj) 2 mg Q15M PRN IV PUSH 02/17/17 17:45 (Folate) 1 mg DAILY PO 02/18/17 09:00 02/23/17 08:59 02/18/17 09:45 (Vitamin B1) 100 mg DAILY PO 02/18/17 09:00 02/18/17 09:46 (Theragran M Tab) 1 tab DAILY PO 02/18/17 09:00 02/23/17 08:59 02/18/17 09:45 (Cardizem Sr) 90 mg DAILY PO 02/18/17 09:00 (Ferrous Sulfate) 325 mg DAILY PO 02/18/17 09:00 02/18/17 09:46 (Lasix) 20 mg DAILY PO 02/18/17 09:00 02/18/17 09:46 (Mag-Ox) 400 mg DAILY PO 02/18/17 09:00 02/18/17 09:46 (Oramorph Sr) 30 mg BID PO 02/17/17 21:00 02/18/17 09:46 (Msir) 30 mg TID PRN PO 02/17/17 18:00 (KCl) 10 meq BID PO 02/17/17 21:00 02/18/17 09:46 (Lyrica) 150 mg HS PO 02/17/17 21:00 02/17/17 21:20 (Flomax) 0.4 mg HS PO 02/17/17 21:00 02/17/17 21:22 (Coumadin) 2.5 mg SuMoWeThSa@16 PO 02/17/17 18:00 02/17/17 18:00 (Coumadin) 5 mg TuFr@16 PO 02/19/17 16:00 Miscellaneous Information ALL NURSING DEPARTME... UNSCH PRN OTHER 02/17/17 18:30 02/18/17 18:29 . Family History Mr. Zhou's mother's had a history of cancer, she at the age of 91. Patient's father at the age of 92. He has 3 brothers and one sister; 1 brother from complications secondary to EtOH and tobacco. . Substance Use Tobacco: Patient quit smoking cigarettes approximately 50 years ago; currently "puffs" on cigars. Alcohol: Heavy EtOH abuse; patient drinks a quart of whiskey every 2 days Prescription med abuse: None known Illicits: None known . Psychosocial History Mr. Zhou was born in [facility], outside of [place]. He was one of 6 children. He is legally from his , but they never . He has been with the same female morning nanny (Stephanie Gage) for 20+ years. The patient has 4 daughters and 10 grandchildren. 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 He is an avid reader and enjoys old movies. . Spiritual/Cultural Factors Yarsani tiesha . Living Will: Copy in medical record Health Care Surrogate: Copy in medical record Durable Power of Canary Raiser: Copy in medical record Date completed: 11/14/1998 . Health Care Surrogate(s): Patient's daughter, Cynthia Russell, is the designated care surrogate. Daughter, Sofia Marcial, is designated as the alternate health care surrogate. . Documented care wishes: Patient's completed written advanced directives have been scanned into the patient's EMR, available for review. . Today's verbally stated goals: Patient states his worship tells him that he "must do anything and everything possible to stay alive". Goals remain aggressive at this time. . Family/friends goals: Pending family meeting/conversation after oncology consult . Ethical and Legal Issues No known ethical or legal issues at this time. . Physical Exam Vital Signs Date Time Temp Pulse Resp B/P Pulse Ox O2 Delivery O2 Flow Rate FiO2 02/18/17 08:00 97.3 93 18 138/87 95 02/18/17 04:36 98 Nasal Cannula 2.00 02/18/17 04:00 97.5 83 18 131/81 99 02/18/17 03:34 77 02/17/17 22:37 20 02/17/17 22:37 20 02/17/17 20:00 97.4 83 18 125/71 97 02/17/17 18:13 98.2 83 18 139/100 97 Nasal Cannula 2.5 02/17/17 15:26 86 16 123/79 97 3 02/17/17 12:37 99 Nasal Cannula 3.5 02/17/17 12:29 97.7 80 20 113/67 02/17/17 12:21 99 Nasal Cannula 3.5 02/17/17 12:21 20 99 3.5 . 02/17/17 02/18/17 19:00 07:00 Intake Total 580 ml Output Total 225 ml Balance 355 ml Intake Oral 580 ml Output Urine Total 225 ml # Voids 0 # Bowel Movements 0 . Exam CONSTITUTIONAL/GENERAL: This is an adequately nourished elderly male patient in no apparent distress. TUBES/LINES/DRAINS: PIV 2, Dixon catheter, port right chest wall SKIN: Ecchymoses on upper extremities, some abrasions noted. Skin temperature appropriate. Not diaphoretic. Bilateral lower extremities with induration, danica brown color. HEAD: Atraumatic. Normocephalic. EYES: Pupils equal and round and reactive. Extraocular motions intact. No scleral icterus. No injection or drainage. Fundi not examined. ENT: Hearing grossly normal. Nose without bleeding or purulent drainage. Throat without visible erythema, exudates, masses, or lesions. NECK: Trachea midline. Supple, nontender. No palpable thyroid enlargement or nodularity. CARDIOVASCULAR: Regular rate and rhythm without murmurs, gallops, or rubs. No JVD. Peripheral pulses symmetric. RESPIRATORY/CHEST: Breath sounds diminished bilaterally with scattered rales. GASTROINTESTINAL: Abdomen soft, non-tender, nondistended. Bowel sounds present. GENITOURINARY: Without palpable bladder distension. Dixon catheter in place. MUSCULOSKELETAL: Trace edema in bilateral lower extremities. Right phillip with Tegaderm on what appears to be a skin tag. Dressing on the phillip dry and intact. LYMPHATICS: No palpable cervical or supraclavicular adenopathy. NEUROLOGICAL: Lethargic, falling asleep throughout conversation. Responds to simple questions with brief answers. PSYCHIATRIC: No obvious anxiety/depression. no apparent hallucinations or other psychotic thought process. . Diagnostic Tests Laboratory Laboratory Tests Test 02/17/17 02/17/17 02/17/17 02/18/17 00:00 11:45 12:30 05:11 B-Type Natriuretic Peptide 81 PG/ML (0-100) Prothrombin Time 26.3 SEC 26.9 SEC (9.8-11.6) (9.8-11.6) Prothromb Time International 2.3 RATIO 2.3 RATIO Ratio Activated Partial 37.9 SEC Thromboplast Time (24.3-30.1) White Blood Count 8.2 TH/MM3 6.5 TH/MM3 (4.0-11.0) (4.0-11.0) Red Blood Count 3.96 MIL/MM3 3.85 MIL/MM3 (4.50-5.90) (4.50-5.90) Hemoglobin 13.5 GM/DL 13.3 GM/DL (13.0-17.0) (13.0-17.0) Hematocrit 39.9 % 39.2 % (39.0-51.0) (39.0-51.0) Mean Corpuscular Volume 100.7 FL 101.9 FL (80.0-100.0) (80.0-100.0) Mean Corpuscular Hemoglobin 33.9 PG 34.6 PG (27.0-34.0) (27.0-34.0) Mean Corpuscular Hemoglobin 33.7 % 33.9 % Concent (32.0-36.0) (32.0-36.0) Red Cell Distribution Width 16.5 % 16.6 % (11.6-17.2) (11.6-17.2) Platelet Count 160 TH/MM3 158 TH/MM3 (150-450) (150-450) Mean Platelet Volume 7.8 FL 7.6 FL (7.0-11.0) (7.0-11.0) Neutrophils (%) (Auto) 80.2 % 78.6 % (16.0-70.0) (16.0-70.0) Lymphocytes (%) (Auto) 9.0 % 10.6 % (9.0-44.0) (9.0-44.0) Monocytes (%) (Auto) 9.2 % (0.0-8.0) 9.0 % (0.0-8.0) Eosinophils (%) (Auto) 0.6 % (0.0-4.0) 1.0 % (0.0-4.0) Basophils (%) (Auto) 1.0 % (0.0-2.0) 0.8 % (0.0-2.0) Neutrophils # (Auto) 6.5 TH/MM3 5.1 TH/MM3 (1.8-7.7) (1.8-7.7) Lymphocytes # (Auto) 0.7 TH/MM3 0.7 TH/MM3 (1.0-4.8) (1.0-4.8) Monocytes # (Auto) 0.7 TH/MM3 0.6 TH/MM3 (0-0.9) (0-0.9) Eosinophils # (Auto) 0.1 TH/MM3 0.1 TH/MM3 (0-0.4) (0-0.4) Basophils # (Auto) 0.1 TH/MM3 0.1 TH/MM3 (0-0.2) (0-0.2) CBC Comment DIFF FINAL DIFF FINAL Differential Comment Sodium Level 138 MEQ/L 139 MEQ/L (136-145) (136-145) Potassium Level 4.7 MEQ/L 4.7 MEQ/L (3.5-5.1) (3.5-5.1) Chloride Level 104 MEQ/L 104 MEQ/L (98-107) (98-107) Carbon Dioxide Level 26.4 MEQ/L 28.1 MEQ/L (21.0-32.0) (21.0-32.0) Anion Gap 8 MEQ/L (5-15) 7 MEQ/L (5-15) Blood Urea Nitrogen 36 MG/DL (7-18) 34 MG/DL (7-18) Creatinine 1.52 MG/DL 1.30 MG/DL (0.60-1.30) (0.60-1.30) Estimat Glomerular Filtration 45 ML/MIN (>89) 53 ML/MIN (>89) Rate Random Glucose 105 MG/DL 72 MG/DL (74-106) (74-106) Calcium Level 8.7 MG/DL 8.2 MG/DL (8.5-10.1) (8.5-10.1) Total Bilirubin 0.8 MG/DL 0.7 MG/DL (0.2-1.0) (0.2-1.0) Aspartate Amino Transf 29 U/L (15-37) 22 U/L (15-37) (AST/SGOT) Alanine Aminotransferase 19 U/L (12-78) 15 U/L (12-78) (ALT/SGPT) Alkaline Phosphatase 106 U/L 106 U/L (45-117) (45-117) Total Creatine Kinase 77 U/L (39-308) Troponin I LESS THAN 0.02 NG/ML (0.02-0.05) Total Protein 6.6 GM/DL 6.3 GM/DL (6.4-8.2) (6.4-8.2) Albumin 2.9 GM/DL 2.7 GM/DL (3.4-5.0) (3.4-5.0) Carcinoembryonic Antigen 88.1 NG/ML (0.2-5.0) . Result Diagram: 02/18/17 0511 02/18/17 0511 Imaging Last [address] Angiography 02/17/17 2058 Signed Impressions: Service Date/Time: Friday, February 17, 2017 15:08 - CONCLUSION: 1. Extensive metastatic disease with innumerable mass lesions throughout both lungs. 2. In addition, there are bulky left supraclavicular and left axillary lymph nodes, prevascular and subcarinal lymph nodes. 3. Nearly occlusive filling defect in the central pulmonary artery to the right lower lobe. I'm not sure if this represents external compression from a bulky hilar lymph node with downstream thrombosis versus a true embolic event. This appears to be isolated, however. 4. Lytic lesion in the left scapula involving the acromion and glenoid characteristic of metastatic disease. Myles Beltran MD Chest X-Ray 02/17/17 1206 Signed Impressions: Service Date/Time: Friday, February 17, 2017 12:19 - CONCLUSION: Cardiomegaly with probable bibasilar atelectasis. Christofer Kennedy MD . Patient/Family Conference Present at Family Conference: Spoke with patient and his friend at patient's bedside. Also patient's daughter , Cynthia, via telephone. . Family Conference Location: Bedside, Hallway Issues Discussed: * Palliative care role, purpose, approach * Additional medical, psychosocial, and spiritual history * Patients general health, functional status, and cognitive changes in the months leading up to the current hospitalization * Patient/family understanding of the current medical problems * Patient/family understanding of prognosis * Patients goals of care as best understood from advance directives and/or conversations and/or values * Current medical treatment options and benefits/burdens of those options * Likely scenarios comparing ongoing aggressive care with a transition to comfort measures only * Questions answered to the best of my ability * Palliative care contact information provided . Assessment and Plan Disease Oriented Problem List: (1) Pneumonia (2) History of Clostridium difficile infection (3) Cancer with pulmonary metastases Comment: . =Patient with history of esophageal carcinoma s/p treated with radiation therapy , Carboplatin and Taxol. =History of prostate cancer =CTA revealed extensive metastatic disease with innumerable mass lesions throughout both lungs; bulky left supra clavicular and left axillary lymph nodes , prevascular and subcarinal nodes; nearly occlusive filling defect in the central pulmonary artery to the right lower lobe (it is unclear if this represents external compression from a bulky hilar lymph node with downstream thrombosis versus a true embolic event, however appears to be isolated); Lytic lesion in the left scapula involving the acromion and glenoid characteristic of metastatic disease. . (4) Acute renal failure Comment: . On admission - BUN 36, creatinine 1.52, GFR 1.52 . (5) FEN/PPX (6) H/O ETOH abuse (7) History of prostate cancer (8) DVT (deep venous thrombosis) Comment: . =INR therapeutic =Patient on anticoagulation therapy status post DVT 2. . (9) Coronary artery disease (10) Arthritis Symptom Scale: (1) Pain 0-10 Scale: Unable to quantify Comment: . = Patient has a history of chronic back/shoulder pain, requiring narcotics. = Upon presentation to the ED, the patient reported increased pain in his left shoulder with decreased mobility. Pain was rated 9 out of 10, exacerbated by movement and palpation. = CTA findings show metastatic carcinoma to lungs and left scapula/shoulder. = Patient remains on home regimen, MS Contin 30 mg PO 2 times daily and MSIR 30mg PO 3 times a day as needed for breakthrough pain. Patient has required MSIR x 1 for breakthrough pain in the past 24 hours. . (2) Debility 0-10 Scale: Unable to quantify (3) Dyspnea 0-10 Scale: Unable to quantify Comment: . = Patient with a history of esophageal carcinoma and prostate cancer presented to [place] ED on 02/17/2017 for evaluation of shortness of breath and right shoulder pain. = CTA with questionable PE but also notable for extensive innumerable metastatic lesions and bulky lymphadenopathy. = INR already therapeutic since patient anticoagulated on Coumadin for DVT x 2. . (4) Constipation 0-10 Scale: Unable to quantify Comment: . Patient denies constipation. LBM 02/18/2017. Bowel protocol in place. . Pertinent Non-Medical Issues Psychosocial: Mr. Zhou was born in [facility], outside of [place]. He was one of 6 children. He is legally from his , but they never . He has been with the same female morning nanny (Stephanie Gage) for 20+ years. The patient has 4 daughters and 10 grandchildren. 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 He is an avid reader and enjoys old movies. Spiritual: Yarsani tiesha Legal: Written advanced directives completed; can be viewed in patient's EMR. Ethical issues impacting care: No known ethical issues impacting care at this time. Important Contacts Cynthia Russell, daughter: [phone] or [phone] Stephanie Gage, significant other: [phone] . Prognosis Patient is a dilatated 76-year-old male who presented to [place] ED on 02/17/17 for evaluation of shortness of breath. He has a known history of esophageal and prostate cancer. Patient was diagnosed with esophageal carcinoma in 2014; patient received radiation therapy, Carboplatin and Taxol. Dr. Bartlett is his oncologist. A PET scan in April, showed no evidence of disease. CTA field innumerable metastatic lesions in his lungs along with bulky left supraclavicular and left axillary lymph nodes, prevascular and subcarinal lymph nodes, as well as a lytic lesion in the left scapula. Oncology has been consulted, patient's overall prognosis is likely poor. . Code Status: Full Code Plan * FULL CODE * Decision-making: Patient is lethargic and intermittently confused. He would likely benefit from joint medical decision making. Patient's daughter, Cynthia Russell, is the designated care surrogate. Daughter, Sofia Marcial, is designated as the alternate health care surrogate. * Goals: Goals aggressive pending oncology consult and family meeting. * Patient states his worship states he "must do anything and everything possible to stay alive". Patient's daughter, Cynthia, thinks her father is dying and she believes her father knows this and is preparing her. Patient apparently told his daughter that he just wants to go home and be at home. * Symptom managementdyspnea: Patient with a history of esophageal carcinoma and prostate cancer presented to [place] ED on 02/17/2017 for evaluation of shortness of breath and right shoulder pain. CTA with questionable PE but also notable for extensive innumerable metastatic lesions and bulky lymphadenopathy. INR already therapeutic since patient anticoagulated on Coumadin for DVT x 2. Patient currently on 2 L oxygen via nasal cannula with oxygen saturation in the mid 90s, dyspnea noted with conversation and minimal exertion. * Symptom managementpain: Patient has a history of chronic back/shoulder pain, requiring narcotics. Upon presentation to the ED, the patient reported increased pain in his left shoulder with decreased mobility. Pain was rated 9 out of 10, exacerbated by movement and palpation. Patient was on MS Contin 30 mg PO 2 times daily and MSIR 30mg PO 3 times daily at home, medication regime is unchanged. Patient has required MSIR x 1 for breakthrough pain in the past 24 hours. * Symptom managementconstipation: Patient denies constipation. LBM 02/18/2017. Bowel protocol in place. We'll continue to monitor. * Written advanced directive have been completed and can be reviewed in the EMR. * Patient is Yarsani, an order for lithographic proofer apprentice consult pending per patient request. * Palliative care contact information provided to the patient at bedside and his daughter (Cynthia) via telephone. * Care will follow this patient throughout his hospitalization to establish trust, assist with symptom management and clarification of medical treatment goals. . Thank you for the opportunity to participate in the care of Mr. Zhou. . Attestation To help prompt me to consider important information that might be impacting today's encounter and assessment, information from prior notes written by myself or my colleagues may have been "brought forward" into today's note. My signature on this note, however, is an attestation that I personally performed the exam, history, and/or decision-making noted today, and, unless otherwise indicated, the interactions with patient, family, and staff as well as the review of records all occurred today. I also attest that the listed assessment and stated plan reflect my best clinical judgment today based on the combination of historical information, prior notes, and today's exam/ interactions. When time spent is documented, it refers only to time spent today by the signer, or if indicated, combined time spent today by collaborating physician/nurse practitioner. . Iris Vickers February 18, 2017 10:50
[2017-02-18] MEDS: DILTIAZEM HCL 90 MG TAB PO SCH (13:21)
[2017-02-18] MEDS: MORPHINE SULFATE 30 MG TAB PO PRN (13:22)
[2017-02-18] MEDS ORDERED: IOHEXOL 350 MG/ML 10 ML VIAL (for RAD DIAG) IV ONE (16:02)
--- NOTE | 2017-02-18 16:13 | EKG ---
Date Performed: 02/17/2017 Time Performed: 12:18:57 PTAGE: 76 years EKG: ATRIAL FIBRILLATION RIGHT BUNDLE BRANCH BLOCK ABNORMAL ECG PREVIOUS TRACING : 04/30/2014 14.44 Compared to previous tracing, the patient is now in atrial fibrillation DOCTOR: Sean Schulte Interpretating Date/Time 02/18/2017 16:11:09
--- NOTE | 2017-02-18 16:28 | RADRPT ---
EXAM DATE/TIME: 02/18/2017 15:54 [facility] COMPARISON: No previous studies available for comparison. INDICATIONS : Evaluate for metastases IV CONTRAST: 100 cc Omnipaque 350 (iohexol) IV ORAL CONTRAST: Prescribed oral contrast ingested. RADIATION DOSE: 16.98 CTDIvol (mGy) MEDICAL HISTORY : Congestive heart failure. Hypertension. Renal failure, chronic.DVT, Prostate cancer, Esophageal Adeno carcinoma SURGICAL HISTORY : None. ENCOUNTER: Initial ACUITY: 2 days PAIN SCALE: 2/10 LOCATION: Bilateral upper quadrant TECHNIQUE: Volumetric scanning of the abdomen and pelvis was performed. Using automated exposure control and ad justment of the mA and/or kV according to patient size, radiation dose was kept as low as reasonably achievable to obtain optimal diagnostic quality images. FINDINGS: There are numerous masses at the lung bases. See chest CT report. There are several small low-attenuation lesions in the liver that are subcentimeter in addition to a 1.9 cm lesion medial segment of the left lobe most characteristic of small cysts. Spleen, left adrena l and pancreas unremarkable. There is enlargement of the right adrenal gland which may be adenomatous . There is suspected sludge within the gallbladder. There is no free fluid. No bowel obstruction. There is herniation of bowel into the right inguinal ca nal without evidence for incarceration or obstruction. There is colonic diverticulosis without diverticulitis. Left hip replacement. Advanced degenerative d isc disease in lumbar spine without evidence for acute fracture. There is a rotatory dextroscoliosis. CONCLUSION: 1. Numerous masses at the lung bases most characteristic of metastatic disease with some air space di sease as well. No definite evidence for metastatic disease within the abdomen and pelvis. 2. Right inguinal hernia containing bowel without incarceration or obstruction. 3. Advanced degenerative change of the spine. Previous left hip replacement. Marcos Matute MD on February 18, 2017 at 16:14 Board Certified Radiologist. This report was verified electronically.
[2017-02-18] MEDS: WARFARIN SOD 2.5 MG TAB PO SCH (17:14)
--- NOTE | 2017-02-18 21:49 | MB ---
cc: GEORGIANA FLOYD DATE OF CONSULTATION 02/18/17 REASON FOR CONSULTATION History of esophageal cancer with multiple pulmonary metastases, respiratory failure and moribund condition. PATIENT PROFILE The patient is a 76-year-old male. He is . He has a female electrical line mechanic. He stopped smoking 50 years ago and had smoked half pack of cigarettes a day for four years. There has been minimal alcohol intake in the past. He has had the same female electrical line mechanic for 20 years. Her name is Stephanie Gage. The patient was born in [facility] outside of [place]. He has four children, all daughters. There was a time in the past when he drank heavily consuming five or six drinks per day. HISTORY OF PRESENT ILLNESS I first saw the patient on May 15, 2015. He was found to have a mass in the GE junction which was a poorly differentiated adenocarcinoma. He had a PET scan on 04/09/2015 showing the mass in the distal esophagus as well as a 1.4 cm lymph node outside of the esophagus. There was no distant metastatic disease. At that time, he was very frail. He had been struggling with recurrent C-difficile infections and had multiple hospitalizations. He was never a candidate for surgery. He was treated with carboplatin and Taxol and radiation therapy and had a complete response. The last time I saw this gentleman was on 09/12/2016. He was supposed to return in four months with CBC, CMP and a PET scan. He apparently became ill during the past several months. He did not want to have any x-rays and he was brought to the hospital on 02/17 2017 with shortness of breath, cough and failure to thrive. He had a CT angiogram on 02/17/2017 and has extensive metastatic disease with innumerable masses throughout both lungs. There was bulky left supraclavicular and left axillary adenopathy as well as prevascular and subcarinal lymph nodes. There was a nearly occlusive filling defect in the central pulmonary artery to the right lower lobe. The radiologist states "I am not sure if this represents external compression from a bulky hilar lymph node with downstream thrombosis versus a true embolic event". There was a lytic lesion in left scapula characteristic of metastatic disease. The patient had laboratory studies consisting of a hemoglobin of 13.3, white count 6500 and platelets 158,000. Lytes, BUN, creatinine and liver function tests unremarkable. Albumin is 2.7, CEA on 02/18/2017 is 88, a PSA is 1.7. The patient remains bedridden. He can barely move his left arm. It is massively swollen. It is very difficult to understand speech because he cannot finish a sentence without gasping for air. PAST SURGICAL HISTORY 1. Carpal tunnel surgery 2. Left hip replacement 2004. PAST MEDICAL HISTORY 1. Anxiety and depression 2. Significant arthritis requiring narcotics 3. C-difficile infection with multiple recurrences 4. Esophageal cancer with biopsy performed on 04/04/2015 revealing adenocarcinoma. 5. History of hypertension 6. Previous history of a pneumonia requiring ventilation 7. Stasis ulcers lower legs 8. Severe kyphosis 9. Dental problems. MEDICATIONS Prior to admission 1. Coumadin 2. Flomax 3. Lyrica 4. Morphine sulfate 5. Iron 6. Diltiazem 7. Amoxicillin. ALLERGIES No old allergies that I am aware of. REVIEW OF SYSTEMS It is very difficult to obtain. The patient cannot complete a sentence. His major complaints are shortness of breath, weakness, severe swelling of the left arm and discomfort in the left shoulder. FAMILY HISTORY Noncontributory. PHYSICAL EXAMINATION GENERAL: An acutely ill male who looks near . I have to lean over to understand his speech and he cannot finish a complete sentence without trying to catch his breath. HEENT: Head is normocephalic. Sclerae and conjunctivae normal. Oropharynx - poor dental hygiene. LYMPH: There is a supraclavicular fullness and I believe left axillary adenopathy. HEART: Regular rhythm. LUNGS: Diminished sounds at the bases bilaterally. ABDOMEN: Without hepatosplenomegaly. EXTREMITIES: 2+ edema. Skin breakdown. NEUROLOGIC: Very little movement of the left arm, generalized weakness. PSYCHIATRIC: The patient does understand the conversation. He is appropriately depressed. ASSESSMENT The patient is a 76-year-old male who presented with an adenocarcinoma of the esophagus in March of 2015 that was treated with carboplatin, Taxol and radiation. He had complete response. He now has multiple pulmonary metastases. He has an elevated CEA of 88 on 02/18/2017 where it was 4.5 on 05/22/2015. Given the radiographic findings and the elevated CEA, I have no doubt that he has metastatic esophageal cancer. I do not find a reason to do a biopsy. He is dying. I suspect that he has days to maybe several weeks to live. It would not surprise me if he dieds within the next week. PLAN 1. I known him very well. I have cared for him for almost a year and had multiple visits. I explained to Sincere that even if he wants chemotherapy, I cannot give it to him and I do not believe that any oncologist would treat him when he is potentially days from . He accepts this. I told him that it would make no sense to do cardiopulmonary resuscitation and put him on a ventilator which might prolong his life by days or weeks but with significant pain and suffering and he would not leave the hospital well and functional. He understands this and does not want cardiopulmonary resuscitation. I explained to him that he deserves to be kept comfortable and he understands this and accepts Hospice. I contacted his daughter, Cynthia Russell, who lives in [place] and spoke to her about her dad's situation indicating that he may only have days to live. I also spoke with the patient's female electrical line mechanic, Stephanie Gage, and shared the same information. Everyone is in agreement with supportive care. I have written for no cardiopulmonary resuscitation and hospice consultation. MD VAUGHN Garcia/ /8:47 PM /9:21 PM FELIPA
[2017-02-18] MEDS: TAMSULOSIN HCL 0.4 MG CAP PO SCH (22:09)
[2017-02-18] MEDS: PREGABALIN 75 MG CAP PO SCH (22:09)
[2017-02-19] VITALS (8 sets, daily range): BP systolic 111–135; BP diastolic 59–89; PULSE 81–114; RESP 18–20; TEMP 97.3–98.1; O2SAT 91–95
[2017-02-19] MEDS: MORPHINE SULFATE 30 MG TAB PO PRN ×2 (03:39→12:47)
[2017-02-19] MEDS: SODIUM CHLOR 0.9% 1000 ML INJ 1,000 ML IV SCH (03:48)
--- NOTE | 2017-02-19 08:56 | PD.ONC.PN ---
Subjective Subjective Remarks remains weak and sob with cough Objective Data Date Time Temp Pulse Resp B/P Pulse Ox O2 Delivery O2 Flow Rate FiO2 02/19/17 08:00 97.3 102 18 112/89 95 02/19/17 07:37 Nasal Cannula 2.00 02/19/17 04:00 Nasal Cannula 2.00 02/19/17 04:00 97.9 93 20 135/81 92 02/19/17 00:00 Room Air 02/19/17 00:00 98.1 81 20 123/74 92 02/18/17 20:17 97.6 84 20 131/78 98 02/18/17 20:17 Nasal Cannula 2.00 02/18/17 20:00 76 02/18/17 16:00 97.8 87 20 132/61 96 02/18/17 14:22 20 02/18/17 12:00 98.1 92 18 132/83 98 02/18/17 10:46 20 02/19/17 02/19/17 02/19/17 07:00 15:00 23:00 Intake Total 60 ml Output Total 245 ml Balance -185 ml Result Diagram: 02/18/1751002/18/17510 Laboratory Results Laboratory Tests Test 02/18/17 10:23 Prostate Specific Antigen 1.72 NG/ML Administered Medications Medications (Trade) Dose Ordered Sig/Amador Route PRN Reason Start Time Stop Time Status Last Admin Dose Admin Sodium Chloride (NS 1000 ml Inj) 1,000 ml @ 140 mls/hr Q7H9M IV 02/17/17 17:33 02/19/17 03:48 Sodium Chloride (NS Flush) 2 ml BID IV FLUSH 02/17/17 21:00 02/18/17 22:10 Folic Acid (Folate) 1 mg DAILY PO 02/18/17 09:00 02/23/17 08:59 02/18/17 09:45 Thiamine HCl (Vitamin B1) 100 mg DAILY PO 02/18/17 09:00 02/18/17 09:46 Multivitamins/ Minerals Therapeutic (Theragran M Tab) 1 tab DAILY PO 02/18/17 09:00 02/23/17 08:59 02/18/17 09:45 Ferrous Sulfate (Ferrous Sulfate) 325 mg DAILY PO 02/18/17 09:00 02/18/17 09:46 Furosemide (Lasix) 20 mg DAILY PO 02/18/17 09:00 02/18/17 09:46 Magnesium Oxide (Mag-Ox) 400 mg DAILY PO 02/18/17 09:00 02/18/17 09:46 Morphine Sulfate (Oramorph Sr) 30 mg BID PO 02/17/17 21:00 02/18/17 22:10 Morphine Sulfate (Msir) 30 mg TID PRN PO PAIN 1-10 02/17/17 18:00 02/19/17 03:39 Potassium Chloride (KCl) 10 meq BID PO 02/17/17 21:00 02/18/17 22:09 Pregabalin (Lyrica) 150 mg HS PO 02/17/17 21:00 02/18/17 22:09 Tamsulosin HCl (Flomax) 0.4 mg HS PO 02/17/17 21:00 02/18/17 22:09 Warfarin Sodium (Coumadin) 2.5 mg SuMoWeThSa@16 PO 02/17/17 18:00 02/18/17 17:14 Diltiazem HCl (Cardizem) 90 mg DAILY PO 02/18/17 10:37 02/18/17 13:21 Objective Remarks GENERAL: acutely ill and sob SKIN: Warm and dry. HEAD: Normocephalic. EYES: No scleral icterus. No injection or drainage. NECK: Supple, trachea midline. No JVD or lymphadenopathy. LYMPHATIC: Nodes in left supraclavicular area and left axilla CARDIOVASCULAR: Regular rate and rhythm without murmurs. RESPIRATORY:decreased sounds at at bases. GASTROINTESTINAL: Abdomen soft, non-tender, nondistended. EXTREMITIES: massive swelling left arm +2 edema lower extremities. MUSCULOSKELETAL: muscle wasting NEUROLOGICAL: No obvious focal deficit. Awake, alert, and oriented x3. PSYCHIATRIC: very much aware of current situation Assessment/Plan Assessment 1: he is dying of metastatic esophageal cancer. I spoke to him about my conversations with his daughter and female systems integration analyst. HE WANTS TO AT HOME. HOSPICE TO SEE HIM AND WOULD IF POSSIBLE SEND HOME TO IF ADEQUATE SUPPORT AVAILABLE. IF NOT CARE CENTER. I DISCUSSED CARE CENTER WITH HIM. Dane Bartlett MD February 19, 2017 08:56
[2017-02-19] MEDS: FOLIC ACID 1 MG TAB PO SCH (09:32)
[2017-02-19] MEDS: MULTIVITAMINS/MINERALS THERAPEUTIC TAB PO SCH (09:32)
[2017-02-19] MEDS: MAGNESIUM OXIDE 400 MG TAB PO SCH (09:32)
[2017-02-19] MEDS: THIAMINE HCL 100 MG TAB PO SCH (09:32)
[2017-02-19 09:33] LABS: AUTOMATED NEUTROPHIL # 5.5 TH/MM3 (1.8-7.7); BASOPHIL % 0.5 % (0.0-2.0); EOSINOPHIL # 0.1 TH/MM3 (0-0.4); HEMATOCRIT 39.6 % (39.0-51.0); HEMO FLAGS DIFF FINAL; LYMPHOCYTE # 0.7 TH/MM3 (1.0-4.8); MEAN CELL VOLUME 103.9 FL (80.0-100.0); MEAN CORPUSCULAR HEMOGLOBIN 33.5 PG (27.0-34.0); MEAN CORPUSCULAR HGB CONC 32.2 % (32.0-36.0); MONO % 10.2 % (0.0-8.0); NEUT % 78.3 % (16.0-70.0); PLATELET COUNT 167 TH/MM3 (150-450); RED BLOOD COUNT 3.81 MIL/MM3 (4.50-5.90); RED CELL DISTRIBUTION WIDTH 17.3 % (11.6-17.2)
[2017-02-19] MEDS: FERROUS SULFATE 325 MG (65 MG ELEMENTAL IRON) TAB PO SCH (09:33)
[2017-02-19] MEDS: MORPHINE SULFATE 30 MG CONTROLLED RELEASE TAB PO SCH (09:33)
[2017-02-19] MEDS: DILTIAZEM HCL 90 MG TAB PO SCH (09:33)
[2017-02-19] MEDS: FUROSEMIDE 20 MG TAB PO SCH (09:33)
[2017-02-19] MEDS: POTASSIUM CHLORIDE 10 MEQ CONTROLLED RELEASE TAB PO SCH (09:33)
[2017-02-19] MEDS: SODIUM CHLORIDE 0.9% FLUSH 10 ML FLUSH IV FLUSH SCH (09:34)
--- NOTE | 2017-02-19 09:39 | HHI.FPPN ---
Subjective Remarks Patient is feeling okay this morning. He ate his breakfast. Discussed the conversations he has had with Dr. Bartlett. 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 Objective Vitals Vital Signs Date Time Temp Pulse Resp B/P Pulse Ox O2 Delivery O2 Flow Rate FiO2 02/19/17 08:00 97.3 102 18 112/89 95 02/19/17 07:37 Nasal Cannula 2.00 02/19/17 04:00 Nasal Cannula 2.00 02/19/17 04:00 97.9 93 20 135/81 92 02/19/17 00:00 Room Air 02/19/17 00:00 98.1 81 20 123/74 92 02/18/17 20:17 97.6 84 20 131/78 98 02/18/17 20:17 Nasal Cannula 2.00 02/18/17 20:00 76 02/18/17 16:00 97.8 87 20 132/61 96 02/18/17 14:22 20 02/18/17 12:00 98.1 92 18 132/83 98 02/18/17 10:46 20 I/O 02/18/17 02/18/17 02/18/17 02/19/17 02/19/17 02/19/17 07:00 15:00 23:00 07:00 15:00 23:00 Intake Total 100 ml 1020 ml 120 ml 60 ml Output Total 200 ml 100 ml 245 ml Balance 100 ml 820 ml 20 ml -185 ml Intake Oral 100 ml 1020 ml 120 ml 60 ml Output Urine Total 200 ml 100 ml 245 ml # Voids 0 1 # Bowel Movements 0 1 0 Result Diagram: 02/18/1751002/18/17 0511 Objective Remarks GENERAL: Elderly male sitting up in bed in [facility]. SKIN: Warm and dry. Superficial abrasion left forehead. Pearly, domelike papule with central umbilication tip of nose. HEENT: Pupils equal and round. No nasal drainage. MMM. Hoarse voice. NECK: Supple, fullness of left supraclavicular region. CHEST: Port in place right chest. HEART: RRR no m/r/g/ LUNGS: CTAB w/o wheezes or crackles. ABDOMEN: Soft, NT, ND. EXTREMITIES: No LE edema. Brawny discoloration of LE. NEURO: Awake and alert. A/P Assessment and Plan 76-year-old male with history of esophageal carcinoma and prostate cancer presenting with shortness of breath and right shoulder pain. CTA with questionable PE but also notable for extensive innumerable metastatic lesions and bulky lymphadenopathy. INR already therapeutic since patient anticoagulated on Coumadin for DVT x 2. Oncology and palliative care consulted for further evaluation and management. Hospice consulted Discharge Planning Hospice consult, patient would like to be home if possible Problem List: (1) Cancer with pulmonary metastases Status: Acute Plan: Metastatic disease as seen on CT. Patient known to Dr. Bartlett who is consulted. Hospice consult - Continue home Oramorph 30 mg PO BID, morphine IR 30 mg PO TID PRN for breath through (2) Pulmonary embolism Status: Acute Plan: Continue Coumadin (3) Acute renal failure Status: Acute Plan: Improved (4) Alcohol abuse Status: Acute Plan: CIWA discontinued as patient has shown no signs of withdrawal Continue vitamins (5) Physical deconditioning Status: Acute Plan: PT consulted. (6) FEN/PPX Status: Acute Plan: - Fluids: Tolerating by mouth - Electrolytes: WNL. - Nutrition: Mechanical soft per speech therapy - DVT prophylaxis: Continue home Coumadin Chronic medical conditions: - Venous stasis disease: continue home Lasix - Iron deficiency anemia: continue home iron - CAD: continue diltiazem 90 mg PO daily - BPH: Continue Flomax Raghu Funez MD R2 February 19, 2017 09:39
[2017-02-19 10:11] LABS: ALKALINE PHOSPHATASE 105 U/L (45-117); ALT (GPT) 16 U/L (12-78); ANION GAP 6 MEQ/L (5-15); AST (GOT) 27 U/L (15-37); BICARBONATE 29.8 MEQ/L (21.0-32.0); BLOOD UREA NITROGEN 25 MG/DL (7-18); CHLORIDE 105 MEQ/L (98-107); GLOMERULAR FILTRATION RATE 56 ML/MIN (>89); POTASSIUM 4.2 MEQ/L (3.5-5.1); SODIUM (NA) 141 MEQ/L (136-145); TOTAL BILIRUBIN ADULT 0.6 MG/DL (0.2-1.0)
[2017-02-19] MEDS ORDERED: WARFARIN SOD 5 MG TAB PO SCH (16:00)
--- NOTE | 2017-02-19 18:16 | HHI.HCPN ---
Reason for visit a. To assist with evaluation and management of symptoms including: dyspnea, pain, weakness. b. To assist medical decision maker(s) with: better understanding of current medical conditions; weighing benefits/burdens of medical treatment options; making medical treatment decisions. . (JACK BLACK) Subjective/Interval History Patient seen and examined in room. Significant other and 3 of 4 daughters at bedside. Patient is awake and alert, he is visibly short of breath at rest on oxygen via NC (3LPM), oxygen saturation 92%. He becomes more dyspneic with conversation. He is weak and falling asleep during conversation. He is essentially bed to chair bound. PT note from today indicates MAX TOLERANCE WITH ROLLING WALKER USE X 6 FT. Afebrile. Tachycardic. LBM 02/19/17. Labs stable. Creatinine 1.24, albumin 2.6. No new imaging. . Family/friend interactions Spoke with patient, significant other and 3 of 4 daughters at bedside. All in agreement with NO CODE. and transition to comfort focused care based on patient verbalized wishes. He hopes to return home, family especially significant other is worried about their ability to care for him at home. Daughters all live out of state and will need to return home in the comings days/ weeks. They have agreed to care center placement ([facility]) to make sure they can get medical equipment, improve symptom management and teach and guide family how to administer meds and to care for him. Family appreciates time spent to answer their questions. Requested case management provide a list of agencies should family attempt to hire care givers if able to go home with hospice support. . (JACK BLACK) Advance Directives Living Will: Copy in medical record Health Care Surrogate: Copy in medical record Durable Power of Spice Grinder: Copy in medical record (JACK BLACK) Advance Directive Specifics Date completed: 11/14/1998 . Health Care Surrogate(s): Patient's daughter, Cynthia Russell, is the designated care surrogate. Daughter, Sofia Marcial, is designated as the alternate health care surrogate. . Documented care wishes: Patient's completed written advanced directives have been scanned into the patient's EMR, available for review. . Significant change in goals: NO CODE. Desires comfort measures with hospice support to [facility] in hopes he will be able to return home, family verbalizes fear home may not be possible but want to try to honor this wish. . (JACK BLACK) Objective Vital Signs Date Time Temp Pulse Resp B/P Pulse Ox O2 Delivery O2 Flow Rate FiO2 02/19/17 11:57 97.8 110 20 111/59 92 02/19/17 08:35 92 Nasal Cannula 3.00 02/19/17 08:00 97.3 102 18 112/89 95 02/19/17 07:37 Nasal Cannula 2.00 02/19/17 04:00 Nasal Cannula 2.00 02/19/17 04:00 97.9 93 20 135/81 92 02/19/17 00:00 Room Air 02/19/17 00:00 98.1 81 20 123/74 92 02/18/17 20:17 97.6 84 20 131/78 98 02/18/17 20:17 Nasal Cannula 2.00 02/18/17 20:00 76 Intake & Output 02/19/17 02/19/17 07:00 19:00 Intake Total 180 ml 360 ml Output Total 345 ml 400 ml Balance -165 ml -40 ml Intake Oral 180 ml 360 ml Output Urine Total 345 ml 400 ml # Bowel Movements 0 0 Physical Exam CONSTITUTIONAL/GENERAL: This is an adequately nourished elderly male patient in no apparent distress. TUBES/LINES/DRAINS: PIV 2, Dixon catheter, port right chest wall SKIN: Ecchymoses on upper extremities, some abrasions noted. Skin temperature appropriate. Not diaphoretic. Bilateral lower extremities with induration, danica brown color, dressing in place. CARDIOVASCULAR: tachycardic. No murmurs, gallops, or rubs. RESPIRATORY/CHEST: Breath sounds diminished bilaterally with scattered rales. Dyspnea noted worsens with conversation. GASTROINTESTINAL: Abdomen soft, non-tender, nondistended. Bowel sounds present. GENITOURINARY: Without palpable bladder distension. Dixon catheter in place. MUSCULOSKELETAL: Weeping edema in bilateral lower extremities. Right phillip with Tegaderm on what appears to be a skin tag. Dressing on the phillip dry and intact. NEUROLOGICAL: Awake and alert. Responds to questions. PSYCHIATRIC: No obvious anxiety/depression. no apparent hallucinations or other psychotic thought process. . (JACK BLACK) Diagnostic Tests Laboratory Laboratory Tests Test 02/17/17 02/17/17 02/17/17 02/18/17 00:00 11:45 12:30 05:11 B-Type Natriuretic Peptide 81 PG/ML (0-100) Prothrombin Time 26.3 SEC 26.9 SEC (9.8-11.6) (9.8-11.6) Prothromb Time International 2.3 RATIO 2.3 RATIO Ratio Activated Partial 37.9 SEC Thromboplast Time (24.3-30.1) White Blood Count 8.2 TH/MM3 6.5 TH/MM3 (4.0-11.0) (4.0-11.0) Red Blood Count 3.96 MIL/MM3 3.85 MIL/MM3 (4.50-5.90) (4.50-5.90) Hemoglobin 13.5 GM/DL 13.3 GM/DL (13.0-17.0) (13.0-17.0) Hematocrit 39.9 % 39.2 % (39.0-51.0) (39.0-51.0) Mean Corpuscular Volume 100.7 FL 101.9 FL (80.0-100.0) (80.0-100.0) Mean Corpuscular Hemoglobin 33.9 PG 34.6 PG (27.0-34.0) (27.0-34.0) Mean Corpuscular Hemoglobin 33.7 % 33.9 % Concent (32.0-36.0) (32.0-36.0) Red Cell Distribution Width 16.5 % 16.6 % (11.6-17.2) (11.6-17.2) Platelet Count 160 TH/MM3 158 TH/MM3 (150-450) (150-450) Mean Platelet Volume 7.8 FL 7.6 FL (7.0-11.0) (7.0-11.0) Neutrophils (%) (Auto) 80.2 % 78.6 % (16.0-70.0) (16.0-70.0) Lymphocytes (%) (Auto) 9.0 % 10.6 % (9.0-44.0) (9.0-44.0) Monocytes (%) (Auto) 9.2 % (0.0-8.0) 9.0 % (0.0-8.0) Eosinophils (%) (Auto) 0.6 % (0.0-4.0) 1.0 % (0.0-4.0) Basophils (%) (Auto) 1.0 % (0.0-2.0) 0.8 % (0.0-2.0) Neutrophils # (Auto) 6.5 TH/MM3 5.1 TH/MM3 (1.8-7.7) (1.8-7.7) Lymphocytes # (Auto) 0.7 TH/MM3 0.7 TH/MM3 (1.0-4.8) (1.0-4.8) Monocytes # (Auto) 0.7 TH/MM3 0.6 TH/MM3 (0-0.9) (0-0.9) Eosinophils # (Auto) 0.1 TH/MM3 0.1 TH/MM3 (0-0.4) (0-0.4) Basophils # (Auto) 0.1 TH/MM3 0.1 TH/MM3 (0-0.2) (0-0.2) CBC Comment DIFF FINAL DIFF FINAL Differential Comment Sodium Level 138 MEQ/L 139 MEQ/L (136-145) (136-145) Potassium Level 4.7 MEQ/L 4.7 MEQ/L (3.5-5.1) (3.5-5.1) Chloride Level 104 MEQ/L 104 MEQ/L (98-107) (98-107) Carbon Dioxide Level 26.4 MEQ/L 28.1 MEQ/L (21.0-32.0) (21.0-32.0) Anion Gap 8 MEQ/L (5-15) 7 MEQ/L (5-15) Blood Urea Nitrogen 36 MG/DL (7-18) 34 MG/DL (7-18) Creatinine 1.52 MG/DL 1.30 MG/DL (0.60-1.30) (0.60-1.30) Estimat Glomerular Filtration 45 ML/MIN (>89) 53 ML/MIN (>89) Rate Random Glucose 105 MG/DL 72 MG/DL (74-106) (74-106) Calcium Level 8.7 MG/DL 8.2 MG/DL (8.5-10.1) (8.5-10.1) Total Bilirubin 0.8 MG/DL 0.7 MG/DL (0.2-1.0) (0.2-1.0) Aspartate Amino Transf 29 U/L (15-37) 22 U/L (15-37) (AST/SGOT) Alanine Aminotransferase 19 U/L (12-78) 15 U/L (12-78) (ALT/SGPT) Alkaline Phosphatase 106 U/L 106 U/L (45-117) (45-117) Total Creatine Kinase 77 U/L (39-308) Troponin I LESS THAN 0.02 NG/ML (0.02-0.05) Total Protein 6.6 GM/DL 6.3 GM/DL (6.4-8.2) (6.4-8.2) Albumin 2.9 GM/DL 2.7 GM/DL (3.4-5.0) (3.4-5.0) Carcinoembryonic Antigen 88.1 NG/ML (0.2-5.0) Test 02/18/17 02/19/17 10:23 08:04 Prostate Specific Antigen 1.72 NG/ML (0.00-4.00) White Blood Count 7.0 TH/MM3 (4.0-11.0) Red Blood Count 3.81 MIL/MM3 (4.50-5.90) Hemoglobin 12.7 GM/DL (13.0-17.0) Hematocrit 39.6 % (39.0-51.0) Mean Corpuscular Volume 103.9 FL (80.0-100.0) Mean Corpuscular Hemoglobin 33.5 PG (27.0-34.0) Mean Corpuscular Hemoglobin 32.2 % Concent (32.0-36.0) Red Cell Distribution Width 17.3 % (11.6-17.2) Platelet Count 167 TH/MM3 (150-450) Mean Platelet Volume 8.0 FL (7.0-11.0) Neutrophils (%) (Auto) 78.3 % (16.0-70.0) Lymphocytes (%) (Auto) 10.0 % (9.0-44.0) Monocytes (%) (Auto) 10.2 % (0.0-8.0) Eosinophils (%) (Auto) 1.0 % (0.0-4.0) Basophils (%) (Auto) 0.5 % (0.0-2.0) Neutrophils # (Auto) 5.5 TH/MM3 (1.8-7.7) Lymphocytes # (Auto) 0.7 TH/MM3 (1.0-4.8) Monocytes # (Auto) 0.7 TH/MM3 (0-0.9) Eosinophils # (Auto) 0.1 TH/MM3 (0-0.4) Basophils # (Auto) 0.0 TH/MM3 (0-0.2) CBC Comment DIFF FINAL Differential Comment Sodium Level 141 MEQ/L (136-145) Potassium Level 4.2 MEQ/L (3.5-5.1) Chloride Level 105 MEQ/L (98-107) Carbon Dioxide Level 29.8 MEQ/L (21.0-32.0) Anion Gap 6 MEQ/L (5-15) Blood Urea Nitrogen 25 MG/DL (7-18) Creatinine 1.24 MG/DL (0.60-1.30) Estimat Glomerular Filtration 56 ML/MIN (>89) Rate Random Glucose 99 MG/DL (74-106) Calcium Level 8.0 MG/DL (8.5-10.1) Total Bilirubin 0.6 MG/DL (0.2-1.0) Aspartate Amino Transf 27 U/L (15-37) (AST/SGOT) Alanine Aminotransferase 16 U/L (12-78) (ALT/SGPT) Alkaline Phosphatase 105 U/L (45-117) Total Protein 6.3 GM/DL (6.4-8.2) Albumin 2.6 GM/DL (3.4-5.0) (JACK BLACK-Piter) Result Diagram: 02/19/17 0804 02/19/17 0804 Imaging Last Impressions Abdomen/Pelvis CT 02/18/17 0000 Signed Impressions: Service Date/Time: February 15:54 - CONCLUSION: 1. Numerous masses at the lung bases most characteristic of metastatic disease with some air space disease as well. No definite evidence for metastatic disease within the abdomen and pelvis. 2. Right inguinal hernia containing bowel without incarceration or obstruction. 3. Advanced degenerative change of the spine. Previous left hip replacement. Marcos Matute MD CT Angiography 02/17/17 6098 Signed Impressions: Service Date/Time: Friday, February 17, 2017 15:08 - CONCLUSION: 1. Extensive metastatic disease with innumerable mass lesions throughout both lungs. 2. In addition, there are bulky left supraclavicular and left axillary lymph nodes, prevascular and subcarinal lymph nodes. 3. Nearly occlusive filling defect in the central pulmonary artery to the right lower lobe. I'm not sure if this represents external compression from a bulky hilar lymph node with downstream thrombosis versus a true embolic event. This appears to be isolated, however. 4. Lytic lesion in the left scapula involving the acromion and glenoid characteristic of metastatic disease. Myles Beltran MD Chest X-Ray 02/17/17 1206 Signed Impressions: Service Date/Time: Friday, February 17, 2017 12:19 - CONCLUSION: Cardiomegaly with probable bibasilar atelectasis. Christofer Kennedy MD ([facility] Assessment and Plan Disease Oriented Problem List: (1) Pneumonia (2) History of Clostridium difficile infection (3) Cancer with pulmonary metastases Comment: . =Patient with history of esophageal carcinoma s/p treated with radiation therapy , Carboplatin and Taxol. =History of prostate cancer =CTA revealed extensive metastatic disease with innumerable mass lesions throughout both lungs; bulky left supra clavicular and left axillary lymph nodes , prevascular and subcarinal nodes; nearly occlusive filling defect in the central pulmonary artery to the right lower lobe (it is unclear if this represents external compression from a bulky hilar lymph node with downstream thrombosis versus a true embolic event, however appears to be isolated); Lytic lesion in the left scapula involving the acromion and glenoid characteristic of metastatic disease. . (4) Acute renal failure Comment: . On admission - BUN 36, creatinine 1.52, GFR 1.52 . (5) FEN/PPX (6) H/O ETOH abuse (7) History of prostate cancer (8) DVT (deep venous thrombosis) Comment: . =INR therapeutic =Patient on anticoagulation therapy status post DVT 2. . (9) Coronary artery disease (10) Arthritis Symptom Scale: (1) Pain 0-10 Scale: Unable to quantify Comment: . = Patient has a history of chronic back/shoulder pain, requiring narcotics. = Upon presentation to the ED, the patient reported increased pain in his left shoulder with decreased mobility. Pain was rated 9 out of 10, exacerbated by movement and palpation. = CTA findings show metastatic carcinoma to lungs and left scapula/shoulder. = Patient remains on home regimen, MS Contin 30 mg PO 2 times daily and MSIR 30mg PO 3 times a day as needed for breakthrough pain. Patient has required MSIR x 1 for breakthrough pain in the past 24 hours. . (2) Debility 0-10 Scale: Unable to quantify (3) Dyspnea 0-10 Scale: 3 Comment: . = Patient with a history of esophageal carcinoma and prostate cancer presented to [place] ED on 02/17/2017 for evaluation of shortness of breath and right shoulder pain. = CTA with questionable PE but also notable for extensive innumerable metastatic lesions and bulky lymphadenopathy. = INR already therapeutic since patient anticoagulated on Coumadin for DVT x 2. . (4) Constipation 0-10 Scale: Unable to quantify Comment: LB 02/19/2017. Bowel protocol in place. . Pertinent Non-Medical Issues Psychosocial: Mr. Zhou was born in [facility], outside of [place]. He was one of 6 children. He is legally from his , but they never . He has been with the same female rap artist (Stephanie Gage) for 20+ years. The patient has 4 daughters and 10 grandchildren. 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 He is an avid reader and enjoys old movies. Spiritual: Worship tiesha Legal: Written advanced directives completed; can be viewed in patient's EMR. Ethical issues impacting care: No known ethical issues impacting care at this time. Important Contacts Cynthia Russell, daughter: [phone] or [phone] Stephanie Too, significant other: [phone] . Prognosis Patient is a 76-year-old male who presented to [place] ED on 02/17/17 for evaluation of shortness of breath. He has a known history of esophageal and prostate cancer. Patient was diagnosed with esophageal carcinoma in 2014; patient received radiation therapy, Carboplatin and Taxol. Dr. Bartlett is his oncologist. A PET scan in April, showed no evidence of disease. CTA field innumerable metastatic lesions in his lungs along with bulky left supraclavicular and left axillary lymph nodes, prevascular and subcarinal lymph nodes, as well as a lytic lesion in the left scapula. Oncology has been consulted, patient's overall prognosis is likely poor. . Code Status: No Code Plan * NO CODE * Decision-making: Patient is lethargic and intermittently confused. He would likely benefit from joint medical decision making. Patient's daughter, Cynthia Russell, is the designated care surrogate. Daughter, Sofia Marcial, is designated as the alternate health care surrogate. Written advanced directive have been completed and can be reviewed in the EMR. * Goals: Spoke with patient, significant other and 3 of 4 daughters at bedside. All in agreement with NO CODE. and transition to comfort focused care based on patient verbalized wishes. He hopes to return home, family especially significant other is worried about their ability to care for him at home. Daughters all live out of state and will need to return home in the comings days / weeks. They have agreed to care center placement ([facility]) to make sure they can get medical equipment, improve symptom management and teach and guide family how to administer meds and to care for him. Family appreciates time spent to answer their questions. * Requested case management provide a list of agencies should family attempt to hire care givers if able to go home with hospice support. * Symptom managementdyspnea: Patient with a history of esophageal carcinoma and prostate cancer presented to [facility] ED on 02/17/2017 for evaluation of shortness of breath and right shoulder pain. CTA with questionable PE but also notable for extensive innumerable metastatic lesions and bulky lymphadenopathy. INR already therapeutic since patient anticoagulated on Coumadin for DVT x 2. on oxygen via nasal cannula, dyspnea noted with conversation and minimal exertion. * Symptom managementpain: Patient has a history of chronic back/shoulder pain, requiring narcotics. Upon presentation to the ED, the patient reported increased pain in his left shoulder with decreased mobility. Pain was rated 9 out of 10, exacerbated by movement and palpation. Patient was on MS Contin 30 mg PO 2 times daily and MSIR 30mg PO 3 times daily at home, medication regime is unchanged. Patient has required MSIR x 1 for breakthrough pain in the past 24 hours. * Symptom managementconstipation: 02/19/2017. Bowel protocol in place. * Palliative will follow this patient throughout his hospitalization to establish trust, assist with symptom management and clarification of medical treatment goals. . (JACK BLACK) Time Spent Total Floor Time (mins): 90 Face to Face Time (mins): 60 >50% Counseling/Coord of Care: Yes (JACK BLACK) Attestation To help prompt me to consider important information that might be impacting today's encounter and assessment, information from prior notes written by myself or my colleagues may have been "brought forward" into today's note. My signature on this note, however, is an attestation that I personally performed the exam, history, and/or decision-making noted today, and, unless otherwise indicated, the interactions with patient, family, and staff as well as the review of records all occurred today. I also attest that the listed assessment and stated plan reflect my best clinical judgment today based on the combination of historical information, prior notes, and today's exam/ interactions. When time spent is documented, it refers only to time spent today by the signer, or if indicated, combined time spent today by collaborating physician/nurse practitioner. (JACK BLACK) Collaborating MD Comments . Chart reviewed. Case discussed with palliative care SHEET METAL WORKER HELPER. I have reviewed above SHEET METAL WORKER HELPER note and I concur. . (Bony Donaldson MD) JACK BLACK February 19, 2017 18:16 Bony Donaldson MD March 09, 2017 12:35
--- NOTE | 2017-02-19 19:50 | HHI.DCPOC ---
Discharge Care Plan Diagnosis: (1) Pneumonia (2) Cancer with pulmonary metastases (3) Acute renal failure (4) History of prostate cancer (5) DVT (deep venous thrombosis) (6) Coronary artery disease (7) Arthritis Goals to Promote Your Health * To prevent worsening of your condition and complications * To maintain your health at the optimal level Directions to Meet Your Goals Take your medications as prescribed Follow your dietary instruction Follow activity as directed Keep your appointments as scheduled Take your immunizations and boosters as scheduled If your symptoms worsen call your PCP, if no PCP go to Urgent Care Center or Emergency Room Smoking is Dangerous to Your Health. Avoid second hand smoke Call the 24-hour hour crisis hotline for domestic abuse at Heather Zaragoza MD R1 February 19, 2017 19:50
== END 2017-02-19 20:35 | disposition hospice, inpatient (51) | DRG 180 ==
LOC: NEPC 11:53 → NEDA 16:35 → N04B 18:56
PROVIDERS: ADMIT Family Medicine; ATTEND Family Medicine
DX: C78.01 Secondary malignant neoplasm of right lung (principal); J18.9 Pneumonia, unspecified organism; I26.99 Other pulmonary embolism without acute cor pulmonale; N17.9 Acute kidney failure, unspecified; C78.7 Secondary malignant neoplasm of liver and intrahepatic bile duct; C79.51 Secondary malignant neoplasm of bone; C78.02 Secondary malignant neoplasm of left lung; N18.6 End stage renal disease; R13.10 Dysphagia, unspecified; I12.0 Hypertensive chronic kidney disease with stage 5 chronic kidney disease or end stage renal disease; J98.11 Atelectasis; M19.90 Unspecified osteoarthritis, unspecified site; F41.9 Anxiety disorder, unspecified; F32.9 Major depressive disorder, single episode, unspecified; N40.0 Benign prostatic hyperplasia without lower urinary tract symptoms; F17.290 Nicotine dependence, other tobacco product, uncomplicated; G89.29 Other chronic pain; M25.512 Pain in left shoulder; M10.9 Gout, unspecified; M81.0 Age-related osteoporosis without current pathological fracture; I73.9 Peripheral vascular disease, unspecified; F10.10 Alcohol abuse, uncomplicated; D50.9 Iron deficiency anemia, unspecified; I25.10 Atherosclerotic heart disease of native coronary artery without angina pectoris; Z96.642 Presence of left artificial hip joint; K59.00 Constipation, unspecified; E78.00 Pure hypercholesterolemia, unspecified; I87.8 Other specified disorders of veins; R59.9 Enlarged lymph nodes, unspecified; M40.209 Unspecified kyphosis, site unspecified; Z85.46 Personal history of malignant neoplasm of prostate; Z79.01 Long term (current) use of anticoagulants; Z85.01 Personal history of malignant neoplasm of esophagus; Z86.718 Personal history of other venous thrombosis and embolism; Z92.3 Personal history of irradiation
CPT/HCPCS: 71010; 71275; 74177; 80053; 82378; 82550; 83880; 84153; 84484; 85025; 85610; 85730; 93005; 96372; J1650; J7030; Q9967